=== PATIENT | female | born 1990 | race Caucasian/White ===

== ENCOUNTER → 2020-04-03 13:57 | Outpatient (BNVA) | payer OTHER, SELFPAY | PROVIDERS: PCP Internal Medicine; Visit Provider Advanced Practice Midwife | DX: Z76.89 Persons encountering health services in other specified circumstances (principal) ==

== ENCOUNTER 2020-04-10 11:40 | Outpatient (REF) | payer OTHER, SELFPAY ==
[2020-04-10 13:48] LABS: Thyroid Stimulating Hormone 1.07 uIU/mL (0.32-4.0)
[2020-04-10 14:02] LABS: Vitamin B12 365 pg/mL (200-900)
== END 2020-04-10 11:41 | disposition home or self-care (01) ==
LOC: HO.LAB 11:40
PROVIDERS: PCP Internal Medicine; Visit Provider Psychiatry & Neurology Neurology
DX: G31.84 Mild cognitive impairment of uncertain or unknown etiology (principal)
CPT/HCPCS: 36415; 82607; 84443

== ENCOUNTER → 2020-05-29 10:31 | Outpatient (BNVA) | payer OTHER, SELFPAY | PROVIDERS: PCP Internal Medicine; Visit Provider Surgery | DX: Z01.818 Encounter for other preprocedural examination (principal); E66.01 Morbid (severe) obesity due to excess calories; Z68.42 Body mass index [BMI] 45.0-49.9, adult; R06.02 Shortness of breath | CPT/HCPCS: 99202 ==

== ENCOUNTER → 2020-06-14 08:06 | Outpatient (BNVA) | payer OTHER, SELFPAY | PROVIDERS: PCP Internal Medicine; Visit Provider Surgery | DX: E66.01 Morbid (severe) obesity due to excess calories (principal); Z68.42 Body mass index [BMI] 45.0-49.9, adult | CPT/HCPCS: 99212 ==

== ENCOUNTER 2020-06-26 13:30 | Outpatient (REF) | payer OTHER, SELFPAY ==
[2020-06-27 15:01] LABS: H Pylori Breath Test NOT DETECTED (NOT DETECTED)
== END 2020-06-26 13:31 | disposition home or self-care (01) ==
LOC: CF 13:30
PROVIDERS: PCP Internal Medicine; Visit Provider Physician Assistant
DX: Z01.818 Encounter for other preprocedural examination (principal); A04.8 Other specified bacterial intestinal infections
CPT/HCPCS: 83013; 99211

== ENCOUNTER → 2020-06-28 14:46 | Outpatient (BNVA) | payer OTHER, SELFPAY | PROVIDERS: PCP Internal Medicine; Visit Provider Dietitian, Registered | DX: E66.01 Morbid (severe) obesity due to excess calories (principal); Z68.42 Body mass index [BMI] 45.0-49.9, adult | CPT/HCPCS: 97802 ==

== ENCOUNTER 2020-07-05 10:15 | Outpatient (REF) | payer OTHER, SELFPAY ==
--- NOTE | ~2020-07-05 | XR_ITS ---
EXAMINATION: XR chest 2V CLINICAL INFORMATION: Reason for Exam R06.02 - Shortness of breath COMPARISON: No prior chest x-ray available in our system for comparison at the time of this dictation. TECHNIQUE: XR chest 2V Lungs and Samantha: Both lungs are clear. Pleura: Normal. Costophrenic angles are sharp. No pneumothorax. Heart: The heart is normal in size. Mediastinum: The mediastinum is within normal limits.. Bones: Skeletal structures included are normal for patient's age. XR/XR chest 2V IMPRESSION: Normal chest x-ray.
--- NOTE | 2020-07-05 10:47 | ECG_ITS ---
Test Reason : R06.02 SOB Blood Pressure : / mmHG Vent. Rate : 077 BPM Atrial Rate : 077 BPM P-R Int : 152 ms QRS Dur : 076 ms QT Int : 382 ms P-R-T Axes : 009 018 048 degrees QTc Int : 432 ms Normal sinus rhythm Normal ECG No previous ECGs available Referred By: Laura Gay Electronically Signed By:BEV HARRINGTON
[2020-07-05 10:54] LABS: MANUAL DIFF FLAG NO
[2020-07-05 11:03] LABS: Basophils Percent Auto 0.1 % (0-2); Eosinophils Absolute Auto 0.1 X10*3/uL (0.0-0.4); Hematocrit 42.8 % (37-47); Hemoglobin 14.2 g/dl (12.0-16.0); Imm Gran Abs Auto 0.02 X10*3/uL (0.00-0.03); Imm Gran Pct Auto 0.2 % (0.0-0.4); Lymphocytes Absolute Auto 1.5 X10*3/uL (1.2-4.9); Lymphocytes Percent Auto 17.1 % (20-40); Mean Corpuscular HGB Conc 33.2 g/dl (31.0-35.0); Mean Corpuscular Hemoglobin 29.6 pg (27.0-33.0); Mean Corpuscular Volume 89.4 fL (80-98); Mean Platelet Volume 12.3 fL (9.4-12.3); Monocytes Absolute Auto 0.4 X10*3/uL (0.1-1.2); Monocytes Percent Auto 4.6 % (2-11); Neutrophils Absolute Auto 6.9 X10*3/uL (2.0-8.3); Platelet Count 265 X10*3/uL (160-400); Red Blood Count 4.79 X10*6/uL (4.20-5.50); White Blood Count 8.9 X10*3/uL (4.8-10.8)
[2020-07-05 11:24] LABS: Estimated Average Glucose 85 mg/dL; Hemoglobin A1C 92.7011 umol/L; Hemoglobin A1c % 4.6 %
[2020-07-05 11:29] LABS: Alanine Aminotransferase 44 U/L (0-31); Albumin Level 4.4 g/dL (3.5-5.0); Alkaline Phosphatase 107 U/L (39-117); Anion Gap 15 (12-20); Aspartate Amino Transferase 24 U/L (5-31); Bilirubin Total 0.5 mg/dL (0.0-1.0); Blood Urea Nitrogen 13 mg/dL (9-16); Calcium 9.3 mg/dL (8.4-10.2); Carbon Dioxide 22 mmol/L (22-29); Chloride 109 mmol/L (96-108); Cholesterol 145 mg/dL; Estimated Glomerular Filt Rate > 60; Glucose Fasting 87 mg/dL (60-99); HDL Cholesterol 31 mg/dL; Iron 60 mcg/dL (30-160); LDL Cholesterol Calculated 100 mg/dl; Percent Iron Saturation 24 % (15-50); Potassium 4.6 mmol/L (3.3-5.1); Sodium 141 mmol/L (135-145); Total Iron Binding Capacity 253 mcg/dL (228-428); Total Protein 7.1 g/dL (6.5-8.0); Triglycerides 70 mg/dL; Unsaturated Iron Binding 193 ug/dL
[2020-07-05 11:49] LABS: Thyroid Stimulating Hormone 0.91 uIU/mL (0.32-4.0); Vitamin B12 333 pg/mL (200-900); Vitamin D 25-OH Total 36.4 ng/mL (>30)
[2020-07-06 12:46] LABS: Calcium (PTHI) 9.2 mg/dL (8.6-10.2); PTHI 51 pg/mL (14-64)
[2020-07-09 17:01] LABS: Zinc 69 mcg/dL (60-130)
[2020-07-10 10:32] LABS: Vitamin A 43 mcg/dL (38-98)
[2020-07-11 17:22] LABS: Vitamin B1 10 nmol/L (8-30)
== END 2020-07-05 10:16 | disposition home or self-care (01) ==
LOC: HO.LAB 10:15
PROVIDERS: PCP Internal Medicine; Visit Provider Surgery
DX: Z01.818 Encounter for other preprocedural examination (principal); K91.2 Postsurgical malabsorption, not elsewhere classified; R06.02 Shortness of breath; Z90.3 Acquired absence of stomach [part of]
CPT/HCPCS: 36415; 71046; 80053; 80061; 82306; 82607; 83036; 83540; 83970; 84425; 84443; 84590; 84630; 85025; 86140; 93005

== ENCOUNTER → 2020-07-12 14:18 | Outpatient (BNVA) | payer OTHER, SELFPAY | PROVIDERS: PCP Internal Medicine; Visit Provider Surgery | DX: E66.01 Morbid (severe) obesity due to excess calories (principal); Z68.42 Body mass index [BMI] 45.0-49.9, adult | CPT/HCPCS: 99212 ==

== ENCOUNTER → 2020-08-13 13:14 | Outpatient (BNVA) | payer OTHER, SELFPAY | PROVIDERS: PCP Internal Medicine; Referring Provider Internal Medicine; Visit Provider Surgery | DX: E66.01 Morbid (severe) obesity due to excess calories (principal); Z68.41 Body mass index [BMI] 40.0-44.9, adult | CPT/HCPCS: 99212 ==

== ENCOUNTER → 2020-09-13 15:17 | Outpatient (BNVA) | payer OTHER, SELFPAY | PROVIDERS: PCP Internal Medicine; Referring Provider Internal Medicine; Visit Provider Surgery | DX: E66.01 Morbid (severe) obesity due to excess calories (principal); F41.8 Other specified anxiety disorders; J30.81 Allergic rhinitis due to animal (cat) (dog) hair and dander; J30.1 Allergic rhinitis due to pollen; Z68.41 Body mass index [BMI] 40.0-44.9, adult; Z87.891 Personal history of nicotine dependence; Z91.02 Food additives allergy status; Z91.018 Allergy to other foods; Z79.899 Other long term (current) drug therapy | CPT/HCPCS: 99212 ==

== ENCOUNTER 2021-03-24 09:09 | Outpatient (REF) | payer OTHER, SELFPAY ==
[2021-03-24 09:46] LABS: Binax Internal Control QC Valid; Binax Lot number: 9864; Binax Now Covid-19 Ag Negative (Negative)
== END 2021-03-24 09:10 | disposition home or self-care (01) ==
LOC: HO.LAB 09:09
PROVIDERS: Visit Provider Internal Medicine
DX: Z20.822 Contact with and (suspected) exposure to COVID-19 (principal)
CPT/HCPCS: 36415; C9803

== ENCOUNTER → 2021-06-18 13:24 | Outpatient (BNVA) | payer OTHER, SELFPAY | PROVIDERS: PCP Internal Medicine; Referring Provider Internal Medicine; Visit Provider Physician Assistant | DX: Z13.89 Encounter for screening for other disorder (principal) ==

== ENCOUNTER 2021-08-28 11:56 | Emergency (ER) | payer OTHER, SELFPAY ==
--- NOTE | ~2021-08-28 | CT_ITS ---
EXAMINATION: CT LUMBAR SPINE WITHOUT CONTRAST CLINICAL INFORMATION: Vertebral tenderness. COMPARISON: Thoracolumbar spine radiographs dated 09/13/2015. TECHNIQUE: Multiple axial images of the lumbar spine were obtained without the administration of intravenous contrast. Coronal and sagittal reformatted images were obtained. This CT examination was performed using dose optimization techniques as appropriate, variously including the following: *Automated exposure control *Adjustment of mA and/or kV according to patient size (this includes techniques or standardized protocols for targeted exams where dose is matched to indication/reason for exam; i.e. extremities or head) *Use of iterative reconstruction technique DLP; 943 mGy-cm FINDINGS: Transitional anatomy seen with rudimentary ribs at T12 and sacralization of L5. A rudimentary disc is seen at L5-S1. There is normal lumbar lordosis and spinal alignment. The vertebral bodies are intact. The neural foramina are patent. The facet joints are unremarkable. The spinous processes and transverse processes are intact. The sacroiliac joints are unremarkable. No significant intra-abdominal/pelvic abnormality. The surrounding soft tissues are unremarkable. CT/CT lumbar spine wo con IMPRESSION: Transitional anatomy as detailed above without other significant abnormality.
[2021-08-28 12:10] VITALS: BP 133/81; PULSE 90; RESP 18; TEMP 37; O2SAT 100; BMI 40.3
[2021-08-28] MEDS: predniSONE 20 MG TABLET 60 MG PO (15:36)
[2021-08-28] MEDS: Ketorolac Tromethamine 30 MG/ML VIAL IM (15:37)
--- NOTE | 2021-08-28 15:45 | ED_ITS ---
HPI - Back Pain/Injury General Chief Complaint: Back Pain/Injury Stated Complaint: Lower back pain Time Seen by Provider: 08/28/21 14:41 Source: patient Mode of arrival: ambulatory Limitations: no limitations History of Present Illness HPI Narrative: 31-year-old female with past medical history of fibromyalgia, traumatic brain injury, PTSD, obesity, presents with acute on chronic low back pain for 1 month. Patient has helped to lift heavy buckets at work, and her back pain was worse after that. It hurts to walk, the pain is in her lower back, and she states that it radiates everywhere. Patient has not had any urinary or bowel incontinence, no urinary retention, no saddle paresthesias, no history of IV drug use, no personal history of cancer, no fevers. The patient saw her primary care provider on August 22, was given meloxicam and cyclobenzaprine, pain is still present Related Data Home Medications Medication Instructions Recorded Confirmed fluoxetine 20 mg capsule 20 mg PO DAILY 04/03/20 08/22/21 lamotrigine 25 mg tablet 25 mg PO Q OTHER DAY 06/18/21 08/22/21 bupropion HCl 150 mg 24 hr tablet, 150 mg PO QAM 08/22/21 08/22/21 extended release dexmethylphenidate 40 mg 40 mg PO DAILY PRN 08/22/21 08/22/21 capsule,extended release [id number] (Focalin XR) Previous Rx's Medication Instructions Recorded omeprazole 20 mg capsule,delayed 20 mg PO BID #60 caps 06/12/21 release ondansetron 8 mg disintegrating 8 mg PO Q12H PRN nausea and 06/12/21 tablet vomiting #30 tabs ondansetron HCl 4 mg tablet 4 mg PO DAILY PRN nausea and 06/18/21 vomiting #30 tabs cyclobenzaprine 5 mg tablet 5 mg PO BEDTIME 30 days #30 tabs 08/22/21 meloxicam 15 mg tablet 15 mg PO DAILY 14 days #14 tabs 08/22/21 methocarbamol 750 mg tablet 750 mg PO Q8H 5 days #15 tabs 08/28/21 oxycodone 5 mg capsule 5 mg PO Q6H PRN pain #6 caps 08/28/21 prednisone 20 mg tablet 60 mg PO DAILY 5 days #15 tabs 08/28/21 Allergies Allergy/AdvReac Type Severity Reaction Status Date / Time dog,cats and molds Allergy Unknown itchy eyes Uncoded 08/22/21 10:02 Gluten & Dairy sensitivity Allergy Unknown GI upset Uncoded 08/22/21 10:02 onions Allergy Unknown stomach Uncoded 08/22/21 10:02 upset ragweed,elm,birch,maple,pigwee Allergy Unknown Itchy Eyes Uncoded 08/22/21 10:02 Review of Systems Constitutional: Constitutional: Denies body ache(s), Denies chills, Denies fatigue, Denies fever(s), Denies headache(s), Denies malaise and Denies weakness Eyes: Eyes: Denies diplopia ENT: Denies vertigo, Denies dizziness, Denies otalgia, Denies headache(s), Denies mouth pain, Denies post nasal drip, Denies sinus pain, Denies sinus pressure, Denies sore throat and Denies throat swelling Cardiovascular: Cardiovascular: Denies chest pain, Denies syncope, Denies leg edema, Denies lightheadedness, Denies Loss of Consciousness, Denies palpitations and Denies dyspnea Respiratory: Respiratory: Denies chest congestion, Denies cough and Denies dyspnea Gastrointestinal: Gastrointestinal: Denies abdominal pain, Denies hematochezia, Denies constipation, Denies diarrhea, Denies nausea and Denies vomiting Musculoskeletal: Musculoskeletal: Reports back pain, Reports myalgias, Reports muscle cramps and Reports radiating pain into limb Neurologic: Denies confusion, Denies vertigo, Denies dizziness, Denies syncope, Denies headache(s) and Denies weakness Psychiatric: Psychiatric: Denies anxiety, Denies confusion and Denies depression Endocrine: Endocrine: Denies fatigue and Denies palpitations Allergic/Immunologic: Allergic/Immunologic: Denies throat swelling PMFSH Past Medical History Medical History Continuous epigastric pain Dairy product intolerance Depression Depression with anxiety Extreme obesity Fibromyalgia History of gluten sensitivity History of traumatic brain injury Hx of migraines IBS (irritable bowel syndrome) Iron deficiency Nausea and vomiting Normal endoscopy PMDD (premenstrual dysphoric disorder) PTSD (post-traumatic stress disorder) Surgical History History of tympanoplasty of left ear Hx of colonoscopy Hx of endoscopy Myringotomy tube status S/P wisdom tooth extraction Family History Family History Father Diverticulitis Polymyalgia Mother HTN (hypertension) Hypothyroidism Glaucoma IBS (irritable bowel syndrome) Arthritis FH: total knee replacement Cervical stenosis of spine Maternal Grandmother Diabetes mellitus Glaucoma Maternal Grandfather Unknown family medical history Paternal Grandmother CVD (cardiovascular disease) Myocardial infarction Paternal Grandfather CVD (cardiovascular disease) Brother Scoliosis Substance abuse Bipolar 1 disorder Social History Social History Alcohol intake: never Patient Tobacco Use Status: Former Tobacco user Substance Use Type: Marijuana Advance Directives: No Advance Directives Information Provided: No Physical Exam Vital Signs: Vital Signs: Last Vital Signs Temp 98.6 F 08/28/21 12:10 Pulse 90 08/28/21 12:10 Resp 18 08/28/21 12:10 BP 133/81 08/28/21 12:10 Pulse Ox 100 08/28/21 12:10 O2 Del Method 08/28/21 12:10 BMI result Body Mass Index 40.3 Const: General: No confusion Nutritional Appearance: well nourished Orientation/consciousness: No confusion Limitations: no limitations Eyes: Conjunctivae: conjunctivae normal Pupils: Equal, round and reactive pupils present EOM: EOMs intact bilaterally Neck: Neck: Yes full ROM, Yes no lymphadenopathy and Yes supple Resp: Effort & Inspection: normal respiratory effort and able to speak in complete sentences Auscultation: clear to auscultation bilaterally, no crackles, no rales, no rhonchi and no wheezes Cardio: Rate: regular rate Rhythm: regular rhythm Heart sounds: S1 normal heart sound present and S2 normal heart sound present GI: Inspection: Yes normal to inspection Palpation (GI): Soft to palpation, nontender, no guarding and not rigid Percussion: Yes normal to percussion Auscultation: normal bowel sounds Back/Spine/Pelvis: Cervical Spine: normal cervical lordosis, cervical ROM normal, No Cervical spine tenderness, No step off deformity and No cervical ROM abnormal Thoracic/Lumbar Spine: thoraco-lumbar spasm, No thoracic spinal tenderness and lumbar spinal tenderness Pelvis: buttock tenderness on the right Skin: General skin exam: no rashes or lesions noted Neuro: General: No confusion Cranial nerves: Yes Equal, round and reactive pupils present Extrem: General: Yes normal to inspection, Yes full ROM and Yes capillary refill normal Right lower extremity: full ROM and normal capillary refill Left lower extremity: full ROM and normal capillary refill Psych: Appearance: grossly normal Affect: normal affect Attitude: cooperative Thought process: Normal thought process present Course Course Course Narrative: 31-year-old female with past medical history fibromyalgia, back pain, traumatic brain injury, PTSD, obesity, presents with acute on chronic low back pain that started 8 days ago. Patient helped to lift a heavy bucket at work and back pain started after that. Patient has no red flag symptoms, she saw her primary care provider August 22, who prescribed meloxicam and cyclobenzaprine, patient has been taking, but the pain is not any better. On exam, patient has stable vitals, she has negative leg raise bilaterally, she tender on her lumbar spine, she is tender in her right buttock, when I push, pain radiates down her right leg. Patient has no spinal surgery, never seen spine due to vertebral tenderness, will CT the patient's lumbar spine gave ketorolac and prednisone Reevaluation(s) Reevaluation #1: FINDINGS: Transitional anatomy seen with rudimentary ribs at T12 and sacralization of L5. A rudimentary disc is seen at L5-S1. There is normal lumbar lordosis and spinal alignment. The vertebral bodies are intact. The neural foramina are patent. The facet joints are unremarkable. The spinous processes and transverse processes are intact. The sacroiliac joints are unremarkable. No significant intra-abdominal/pelvic abnormality. The surrounding soft tissues are unremarkable.? CT/CT lumbar spine wo con IMPRESSION: Transitional anatomy as detailed above without other significant abnormality. ? 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 Patient should follow up with spine doctor. On re-exam, pt is still in pain, tearful, says the prednisone and ketorolac did not help. Will change Flexeril to Robaxin, will give oxycodone here in [facility], will refer to spine MDM - Back Pain/Injury Lab Data Labs: Lab Results 08/28/21 Range/Units 15:50 Urine Test NEGATIVE (NEGATIVE) Discharge Plan Discharge Clinical Impression: Lower back pain Patient Disposition: Home, Self-Care Additional Instructions: Please call [facility] at the following number: [phone]. Please tell them you were seen in the ER and the provider wants you referred for evaluation by a spine doctor to see if the abnormalities on your CT are contributing to your back pain. please take the prednisone and methocarbamol I prescribed, and take oxycodone as needed. the methocarbamol as a muscle relaxant, please stop the cyclobenzaprine. please return to emergency room if you have sudden leg weakness, incontinence of bowel or bladder, numbness or tingling spine, fevers, or any other concerning symptoms Prescriptions: New prednisone 20 mg tablet 60 mg PO DAILY 5 Days Qty: 15 0RF methocarbamol 750 mg tablet 750 mg PO Q8H 5 Days Qty: 15 0RF oxycodone 5 mg capsule 5 mg PO Q6H PRN (Reason: pain) Qty: 6 0RF Rx Instructions: Partial Fill upon patient request. No Action dexmethylphenidate [Focalin XR] 40 mg capsule,ER biphasic 50-50 40 mg PO DAILY PRN bupropion HCl 150 mg tablet extended release 24 hr 150 mg PO QAM meloxicam 15 mg tablet 15 mg PO DAILY 14 Days Qty: 14 0RF cyclobenzaprine 5 mg tablet 5 mg PO BEDTIME 30 Days Qty: 30 0RF omeprazole 20 mg capsule,delayed release(DR/EC) 20 mg PO BID Qty: 60 2RF ondansetron 8 mg tablet,disintegrating 8 mg PO Q12H PRN (Reason: nausea and vomiting) Qty: 30 0RF fluoxetine 20 mg capsule 20 mg PO DAILY lamotrigine 25 mg tablet 25 mg PO Q OTHER DAY ondansetron HCl 4 mg tablet 4 mg PO DAILY PRN (Reason: nausea and vomiting) Qty: 30 0RF
[2021-08-28 15:57] LABS: UPreg QC Valid YES; Urine Pregnancy NEGATIVE (NEGATIVE)
[2021-08-28] MEDS: oxyCODONE HCl Immed Release 5 MG TABLET PO (18:58)
[2021-08-28] MEDS: Cyclobenzaprine HCl 10 MG TABLET PO (18:58)
== END 2021-08-28 19:05 | disposition home or self-care (01) ==
PROVIDERS: Physician Assistant; Emergency Provider Emergency Medicine; PCP Internal Medicine
DX: Z04.2 Encounter for examination and observation following work accident (principal); M54.50 Low back pain, unspecified; Z87.820 Personal history of traumatic brain injury
CPT/HCPCS: 72131; 81025; 96372; 99283; 99284; J1885

== ENCOUNTER → 2021-09-05 13:05 | Outpatient (BNVA) | payer OTHER, SELFPAY | PROVIDERS: PCP Internal Medicine; Visit Provider Anesthesiology | DX: M16.0 Bilateral primary osteoarthritis of hip (principal); M46.1 Sacroiliitis, not elsewhere classified; M51.36 Other intervertebral disc degeneration, lumbar region | CPT/HCPCS: 99202 ==

== ENCOUNTER 2022-04-21 11:51 | Outpatient (REF) | payer OTHER, SELFPAY ==
[2022-04-21 13:19] LABS: Influenza A PCR NEGATIVE (Negative); Influenza B PCR NEGATIVE (Negative); Resp Syncy Virus RNA Qual PCR NEGATIVE (Negative); SARS COV2 PCR INHOUSE NEGATIVE (Negative)
== END 2022-04-21 11:52 | disposition home or self-care (01) ==
LOC: HO.LNP 11:51
PROVIDERS: Visit Provider Internal Medicine
DX: Z20.822 Contact with and (suspected) exposure to COVID-19 (principal); R43.9 Unspecified disturbances of smell and taste
CPT/HCPCS: 0241U

== ENCOUNTER 2024-11-08 14:16 | Outpatient (AMB) | payer OTHER, SELFPAY ==
--- OUTSIDE RECORDS SUMMARY | 2024-11-08 15:38 | XMS_ITS | Patient Health Record ---
Author Organization [facility] Address [address] [place] [address] Support Name Relationship Address Phone DEANNA, SUSAN Emergency Contact [address] [place], [place] [id number] PEMA HUERTA Guarantor Unknown [phone] Care Team Providers Care Student Development Specialist Name Role Phone Lisbeth TEMPLE, Dariln Primary Care Provider Murray De Paz Jr [phone] Allergies Allergen (clinical drug ingredient) Drug/Non Drug Allergy documented on EMR Reaction Allergy Type Onset Date Status sumatriptan Sumatriptan Unknown Drug Allergy Act rigoberto Reason For Referral No Information Medications Medication SIG (Take, Route, Frequency, Duration) Notes Start Date End Date Status Omeprazole 20 MG 1 capsule Orally Onc e a day for 30 day(s) Active Focalin XR 40 MG 1 capsule in the morning Orally Once a day Active Ibuprofen 800 MG TK 1 T PO QD WF OR MILK PRN Oral prn Active FLUoxetine HCl 10 MG TK 1 C PO QD IN THE MORNING Oral Once a day Active Dicyclomine HCl 10 MG 1 capsule Orally F our times a day Not-Taking Nortriptyline HCl 25 MG TK 1 C PO QHS Oral QHS Active lamoTRIgine 25 MG 1 tablet Orally Twic e a day Active Cetirizine HCl 10 MG TK 1 T PO D Orally Once a day Active Lyrica 150 MG 1 capsule Orally Thr ee times a day Active Vitamin D3 38938 UNIT TK 1 C PO WEEKLY Orally Once a week Active Fluticasone Propionate 50 MCG/ACT U 2 SPRAYS IN EACH NOSTRIL D Nasal Once a day Active Ketoconazole 2 % 1 application to affected area External Once a day Active Norlyda 0.35 MG TK 1 T PO D Orally once a day Active diphenhydrAMINE HCl 50 MG 1 capsule as n eeded Orally prn 03/26/2018 Active Naproxen 500 MG 1 tablet with food o r milk Orally once a day Active Topiramate 50 MG 1 tablet Orally Once a day Active Metoclopramide HCl 10 MG as directed Ora l as directed Active Immunizations Vaccine Route Administration Date Status Comme nts Influenza Unknown 12/21/2017 Administered Social History Tobacco Use: Social History Observation Description Date Details (start date - stop date) Former Smoker NA - NA Tobacco Use/Smoking Question Answer Notes Patient is a former smoker How long has it been since you last smoked? 1-5 years Problems Problem Type SNOMED Code ICD Code Onset Dates Problem Status W/U Status Risk Notes Problem 929902234 Gastroesophageal reflux disease without esophagitis (K21.9) Active confirmed Problem 25235042 Nausea and vomit ing, unspecified intactability, vomiting of unspecified type (R11.2) Active confirmed Problem 386293257 Anemia, unspecif ied type (D64.9) Active confirmed Problem 35831889 Irritable bowel syndrome with both constipation and diarrhea (K58.2) Active confirmed Plan Of Treatment Pending Test Test Name Order Date IRON + IBC (FE) 04/02/2018 FERRITIN 04/02/2018 CBC w/o DIFF 04/02/2018 Insurance Providers Payer Name Payer Address Payer Phone Subscriber Number Group Number Insured Name Patient Relationship to Insured Coverage Start Date Coverage End Date [facility] [employer] [facility] [address] [address] [place], [place] [id number] PEMA HUERTA Self - patient is the insured Medical (General) History Medical History History ICD Code fibromyalgia headaches Denies VA,DM,CVA,Lung disease,renal dise ase allergies Surgical History Surgery Date(Month/Year) eardrum colapse repair 2003
--- OUTSIDE RECORDS SUMMARY | 2024-11-08 15:38 | XMS_ITS | Clinical Summary ---
Author Organization [facility] Address [address] [place] [id number] Phone Care Team Providers Care Day Worker Name Role Phone Darlin Bob MD Primary Care Provider Allergies Active Allergy Reactions Criticality Noted Date Comments Other 12/16/2017 Seasonal Sumatriptan 03/26/2018 Other reaction(s): Unknown Medications FLUoxetine (PROZAC) 20 MG tablet Take 60 mg by mouth daily. Active lamoTRIgine (LAMICTAL) 25 MG tablet Take 50 mg by mouth daily. Active dexmethylphenida te (FOCALIN XR) 25 mg 24 hr capsule Take 25 mg by mouth every morning. Active diphenhydrAMINE (BENADRYL) 50 MG capsule Take 50 mg by mouth as needed for itching. Active levocetirizine (XYZAL) 5 MG tablet Take 5 mg by mouth daily. 3 Active cloNIDine HCL (CATAPRES) 0.1 MG tablet Take 1 tablet by mouth 2 (two) times a day. 3 Active betamethasone dipropionate 0.05 % ointment Apply topically as needed. 4 Active HIBICLENS 4 % external liquid USE EVERY OTHER DAY BODY WASH TO AFFECTED AREAS ON THE BODY 4 Active nystatin (NYSTOP) powder APPLY TO THE AFFECTED AREAS UNDER THE BREAST AND GROIN AREA ONCE DAILY AFTER SHOWERS 4 Active cyanocobalamin, vitamin B-12, 1000 MCG tabletIndication s:Vitamin B 12 deficiency TAKE 1 TABLET BY MOUTH EVERY DAY 90 tablet 1 5 Active omeprazole (PRILOSEC) 20 MG capsule 1 capsule. Active albuterol 90 mcg/actuation inhaler Inhale 2 puffs into the lungs every 6 (six) hours as needed for wheezing. 6.7 g 5 Active cyclobenzaprine (FLEXERIL) 5 MG tabletIndication s:Fibromyalgia,C hronic left-sided low back pain with left-sided sciatica Take 1-2 tabs for muscle spasm as needed 180 tablet 1 5 Active ibuprofen (ADVIL,MOTRIN) 600 MG tabletIndication s:Chronic left-sided low back pain with left-sided sciatica Take 1 tab twice daily with food as needed for pain 180 tablet 1 5 Active omeprazole (PRILOSEC) 20 MG tablet Take 20 mg by mouth. 10/14/19 25 Discontin ued(Dupli kasi order) fluticasone propionate (FLONASE) 50 mcg/actuation nasal spray 1 spray 2 (two) times a day. 3 10/14/19 25 Discontin ued(No longer taking) cyclobenzaprine (FLEXERIL) 5 MG tabletIndication s:Fibromyalgia,C hronic left-sided low back pain with left-sided sciatica Take 1-2 tabs for muscle spasm as needed 60 tablet 4 10/14/19 25 Discontin ued(Reord er) ibuprofen (ADVIL,MOTRIN) 600 MG tabletIndication s:Chronic left-sided low back pain with left-sided sciatica Take 1 tab twice daily with food as needed for pain 60 tablet 4 10/14/19 25 Discontin ued(Reord er) topiramate (TOPAMAX) 50 MG tablet 1 tablet Orally Once a day 10/14/19 25 Discontin ued(No longer taking) pregabalin (LYRICA) 150 MG capsule 1 capsule. 10/14/19 25 Discontin ued(No longer taking) predniSONE (DELTASONE) 20 MG tablet TAKE 2 TABLETS BY MOUTH EVERY DAY FOR 5 DAYS 10/14/19 25 Discontin ued(No longer taking) Active Problems Problem Noted Date Diagnosed Date Heat intolerance 10/13/2024 Vitamin B12 deficiency 10/13/2024 Vitamin D deficiency, unspecified 09/16/2023 Fatigue 09/16/2023 Assessment & Plan (09/19/2023 4:20 PM EDT): Balance rest and activity. Keep well-hydrated. Eat well-balanced nutritionally diet. Gentle, regular exercise as tolerated. Adhere to age-appropriate screenings and preventive strategies. Avoid falls, injuries, overuse, sunburn and sick contacts Continue regular hobbies and favorite activities. Class 3 severe obesity due t o excess calories with serious comorbidity and body mass index (BMI) of 45.0 to 49.9 in adult 09/16/2023 Assessment & Plan (01/24/2024 10:38 PM EST): Congratulations on losing 1 pound from 297 in late August 2023 down to 296 today and keep it off. Continue diligent portion control. Limit concentrated sugars, saturated fats and calories in the diet. Keep well-hydrated. If unable to achieve expected goal consider formal dietary/nutritional support. Assessment & Plan (09/19/2023 4:20 PM EDT): Continue diligent portion control particularly in view of gaining 60 pounds from 237 in September 2021 up to 297 today! Limit concentrated sugars, saturated fats and calories in the diet. Keep well-hydrated. If unable to achieve expected goal consider formal dietary/nutritional support. Chronic left-sided low back pain with left-sided sciatica 10/07/2021 Assessment & Plan (10/13/2024 3:08 PM EDT): Joint protection, energy conservation. Gentle, regular exercise routine. Avoid falls, injuries, overuse, bending, stooping, Heavy Lifting, sudden turns. Work hard on bringing her body weight into ideal range for her height. She may benefit from topical cream such as Arnica, Biofreeze, Aspercreme versus medicated patches such as salonpas, icy hot patch 2-3 times daily and if necessary at bedtime x 3 weeks. Carefully try methocarbamol 750 mg up to 3 times daily as needed. Assessment & Plan (01/06/2024 1:23 PM EDT): Joint protection, energy conservation. Gentle, regular exercise routine. Avoid falls, injuries, overuse, bending, stooping, Heavy Lifting, sudden turns. Work hard on bringing her body weight into ideal range for her height. She may benefit from topical cream such as Arnica, Biofreeze, Aspercreme versus medicated patches such as salonpas, icy hot patch 2-3 times daily and if necessary at bedtime x 3 weeks. Carefully try methocarbamol 750 mg up to 3 times daily as needed. Assessment & Plan (09/16/2023 8:51 AM EDT): Joint protection, energy conservation. Gentle, regular exercise routine. Avoid falls, injuries, overuse, bending, stooping, Heavy Lifting, sudden turns. Work hard on bringing her body weight into ideal range for her height. She may benefit from topical cream such as Arnica, Biofreeze, Aspercreme versus medicated patches such as salonpas, icy hot patch 2-3 times daily and if necessary at bedtime x 3 weeks. Carefully try methocarbamol 750 mg up to 3 times daily as needed. Assessment & Plan (10/22/2021 10:55 PM EDT): Joint protection, energy conservation. Gentle, regular exercise routine. Avoid falls, injuries, overuse, bending, stooping, Heavy Lifting, sudden turns. Work hard on bringing her body weight into ideal range for her height. She may benefit from topical cream such as Arnica, Biofreeze, Aspercreme versus medicated patches such as salonpas, icy hot patch 2-3 times daily and if necessary at bedtime x 3 weeks. Carefully try methocarbamol 750 mg up to 3 times daily as needed. Vitamin D insufficiency 10/07/2021 Assessment & Plan (01/06/2024 1:43 PM EDT): Serum level requested to make sure that she does not require additional supplementation to keep within the optimal range: 40-45 ng/ml. Assessment & Plan (10/22/2021 10:52 PM EDT): Serum level requested to make sure that she does not require additional supplementation to keep within the optimal range: 40-45 ng/ml. Gastroesophageal reflux disease without esophagi tis 04/13/2020 Assessment & Plan (10/13/2024 3:08 PM EDT): Avoid late, large, spicy meals. Keep headboard elevated at 45 angle for nighttime. Assessment & Plan (01/06/2024 1:25 PM EDT): Avoid late, large, spicy meals. Keep headboard elevated at 45 angle for nighttime. Assessment & Plan (09/19/2023 4:17 PM EDT): Avoid late, large, spicy meals. Keep headboard elevated at 45 angle for nighttime. Carefully continue omeprazole 20 mg daily Assessment & Plan (10/22/2021 10:53 PM EDT): Avoid late, large, spicy meals. Keep headboard elevated at 45 angle for nighttime. Assessment & Plan (11/02/2020 8:59 AM EDT): Avoid late, large, spicy meals. Keep headboard elevated at 45 angle for nighttime. Continue omeprazole 20 mg daily before breakfast. Assessment & Plan (07/29/2020 10:54 PM EDT): Avoid late, large, spicy meals. Keep headboard elevated at 45 angle for nighttime. Assessment & Plan (04/13/2020 3:42 PM EST): Avoid late, large, spicy meals. Keep headboard elevated at 45 angle for nighttime. On SSRI therapy 04/13/2020 Assessment & Plan (10/13/2024 3:08 PM EDT): Monitor for mood swings, increased muscle rigidity and temperature intolerance. Assessment & Plan (01/06/2024 1:23 PM EDT): Monitor for mood swings, increased muscle rigidity and temperature intolerance. Assessment & Plan (09/16/2023 9:16 AM EDT): Monitor for mood swings, increased muscle rigidity and temperature intolerance. Assessment & Plan (11/02/2020 8:58 AM EDT): Monitor for mood swings, increased muscle rigidity and temperature intolerance. Assessment & Plan (07/29/2020 10:54 PM EDT): Monitor for mood swings, increased muscle rigidity and temperature intolerance. Assessment & Plan (04/13/2020 3:45 PM EST): Monitor for mood swings, increased muscle rigidity and temperature intolerance. Advice given about COVID-19 virus by telephone 1 04/30/2019 Assessment & Plan (02/28/2020 9:59 AM EST): I reviewed with her benefits of yearly influenza vaccine particularly this year in view of possible concomitant risk of madelaine COVID-19 virus. She is educated to get yearly influenza vaccine SHONDA since it takes 2 weeks for the body to produce enough of protection the upcoming season. Chronic coccygeal pain 02/24/2019 Chronic midline low back pain 08/23/2018 Assessment & Plan (04/13/2020 3:45 PM EST): Avoid bending, stooping, heavy lifting and sudden turns. Use warm packs, warm shower prior to gentle, regular core muscle stretching and strengthening exercises. Consider regular warm pool therapy. Work on reducing body weight as close as possible to ideal range for her height. Assessment & Plan (02/24/2020 2:14 PM EST): Avoid bending, stooping, heavy lifting and sudden turns. Use warm packs, warm shower prior to gentle, regular core muscle stretching and strengthening exercises. Consider regular warm pool therapy. Work on reducing body weight as close as possible to ideal range for her height. Assessment & Plan (07/27/2019 11:54 AM EDT): Avoid bending, stooping, heavy lifting and sudden turns. Use warm packs, warm shower prior to gentle, regular core muscle stretching and strengthening exercises. Consider regular warm pool therapy. Work on reducing body weight as close as possible to ideal range for her height. Assessment & Plan (03/19/2019 9:40 AM EST): Avoid bending, stooping, heavy lifting and sudden turns. Use warm packs, warm shower prior to gentle, regular core muscle stretching and strengthening exercises. Consider regular warm pool therapy. Work on reducing body weight as close as possible to ideal range for her height. Other insomnia 05/24/2018 Assessment & Plan (02/28/2020 9:56 AM EST): Sleep hygiene. Listen to relaxation tapes prior to bed rest. Consider melatonin 3-5 mg nightly x 6-12 weeks. If not better seek sleep specialist consultation-sleep study requested. Assessment & Plan (07/27/2019 11:53 AM EDT): Sleep hygiene. Listen to relaxation tapes prior to bed rest. Consider melatonin 3-5 mg nightly x 6-12 weeks. If not better seek sleep specialist consultation-sleep study requested. Assessment & Plan (02/24/2019 11:11 AM EST): Sleep hygiene. Listen to relaxation tapes prior to bed rest. Consider melatonin 3-5 mg nightly x 6-12 weeks. If not better seek sleep specialist consultation-sleep study requested. Assessment & Plan (05/25/2018 11:49 PM EST): Lip hygiene. Listen to relaxation tapes prior to bed rest. Consider melatonin 3-5 mg nightly x 6-12 weeks. If not better seek sleep specialist consultation-sleep study requested. Vaso-vagal reaction 05/24/2018 Assessment & Plan (05/25/2018 11:43 PM EST): After injecting a mixture of lidocaine and Depo-Medrol into her right carpal tunnel she became pale, nauseous and diaphoretic. I applied ice pack to her forehead and posterior neck and asked her to lower her head onto a pillow on the table monitoring her pulse rate and respirations that were stable. She did not lose consciousness-was communicating with me throughout the entire event that lasted about 8-10 minutes. She was able to get up from the chair without dizziness and walked with me to waiting room steadily. Fibromyalgia 12/16/2017 Assessment & Plan (10/13/2024 3:08 PM EDT): She was able to taper off of Lyrica about 12 months ago and does not feel worse without it in fact she feels a bit better intermittently. Listen regularly to [facility] guide to pain relief audiobook. Sleep hygiene. Proper hydration. Well-balanced nutritionally diet. Gentle, regular exercise as tolerated. Balance rest and activity. Keep regular engagement in hobbies/favorite activities. Continue listening to audiobook written by Dr Phil [facility] addressing management strategies for patients with fibromyalgia utilizing mindfulness approach. I have explained to Jessica that to justify her disability claim she needs to get a full functional capacity evaluation that is testing her ability to perform job-related duties over 8-hour work day. I suggested her to request evaluation by return to work as part of possible job re-training. Assessment & Plan (01/06/2024 1:23 PM EDT): She was able to taper off of Lyrica about 12 months ago and does not feel worse without it in fact she feels a bit better intermittently. Listen regularly to [facility] guide to pain relief audiobook. Sleep hygiene. Proper hydration. Well-balanced nutritionally diet. Gentle, regular exercise as tolerated. Balance rest and activity. Keep regular engagement in hobbies/favorite activities. Continue listening to audiobook written by Dr Phil [facility] addressing management strategies for patients with fibromyalgia utilizing mindfulness approach. I have explained to Jessica that to justify her disability claim she needs to get a full functional capacity evaluation that is testing her ability to perform job-related duties over 8-hour work day. I suggested her to request evaluation by return to work as part of possible job re-training. Assessment & Plan (09/19/2023 4:14 PM EDT): She was able to taper off of Lyrica about 12 months ago and does not feel worse without it in fact she feels a bit better intermittently. Listen regularly to [facility] guide to pain relief audiobook. Sleep hygiene. Proper hydration. Well-balanced nutritionally diet. Gentle, regular exercise as tolerated. Balance rest and activity. Keep regular engagement in hobbies/favorite activities. Continue listening to audiobook written by Dr Phil persaud addressing management strategies for patients with fibromyalgia utilizing mindfulness approach. I have explained to Jessica that to justify her disability claim she needs to get a full functional capacity evaluation that is testing her ability to perform job-related duties over 8-hour work day. I suggested her to request evaluation by return to work as part of possible job re-training. Assessment & Plan (11/02/2020 9:00 AM EDT): He was able to taper off of Lyrica about 2 months ago and does not feel worse without it in fact she feels a bit better. Listen regularly to [facility] guide to pain relief audiobook. Sleep hygiene. Proper hydration. Well-balanced nutritionally diet. Gentle, regular exercise as tolerated. Balance rest and activity. Keep regular engagement in hobbies/favorite activities. Continue listening to audiobook written by Dr Phil persaud addressing management strategies for patients with fibromyalgia utilizing mindfulness approach. I have explained to Jessica that to justify her disability claim she needs to get a full functional capacity evaluation that is testing her ability to perform job-related duties over 8-hour work day. I suggested her to request evaluation by return to work as part of possible job re-training. Assessment & Plan (07/29/2020 10:53 PM EDT): Gently taper Lyrica by taking 150 mg twice daily alternating with Lyrica 150 mg daily x 2 weeks, if no worsening take Lyrica 150 mg daily x 2 weeks, if no worsening take Lyrica 150 mg every other day x 1 week and then stop. Call if problems or questions. Listen regularly to [facility] guide to pain relief audiobook. Sleep hygiene. Proper hydration. Well-balanced nutritionally diet. Gentle, regular exercise as tolerated. Balance rest and activity. Keep regular engagement in hobbies/favorite activities. Continue listening to audiobook written by Dr Phil persaud addressing management strategies for patients with fibromyalgia utilizing mindfulness approach. I have explained to Jessica that to justify her disability claim she needs to get a full functional capacity evaluation that is testing her ability to perform job-related duties over 8-hour work day. I suggested her to request evaluation by return to work as part of possible job re-training. Assessment & Plan (04/13/2020 3:40 PM EST): Continue Lyrica 150 mg 3 times daily as prescribed. Listen regularly to [facility] guide to pain relief audiobook. Sleep hygiene. Proper hydration. Well-balanced nutritionally diet. Gentle, regular exercise as tolerated. Balance rest and activity. Keep regular engagement in hobbies/favorite activities. Continue listening to audiobook written by Dr Phil persaud addressing management strategies for patients with fibromyalgia utilizing mindfulness approach. I have explained to Jessica that to justify her disability claim she needs to get a full functional capacity evaluation that is testing her ability to perform job-related duties over 8-hour work day. I suggested her to request evaluation by return to work as part of possible job re-training. Assessment & Plan (02/28/2020 9:58 AM EST): Continue Lyrica 150 mg 3 times daily as prescribed. Listen regularly to [facility] guide to pain relief audiobook. Sleep hygiene. Proper hydration. Well-balanced nutritionally diet. Gentle, regular exercise as tolerated. Balance rest and activity. Keep regular engagement in hobbies/favorite activities. Continue listening to audiobook written by Dr Phil persaud addressing management strategies for patients with fibromyalgia utilizing mindfulness approach. I have explained to Jessica that to justify her disability claim she needs to get a full functional capacity evaluation that is testing her ability to perform job-related duties over 8-hour work day. I suggested her to request evaluation by return to work as part of possible job re-training. Assessment & Plan (07/27/2019 7:05 PM EDT): Listen regularly to [facility] guide to pain relief audiobook. Sleep hygiene. Proper hydration. Well-balanced nutritionally diet. Gentle, regular exercise as tolerated. Balance rest and activity. Keep regular engagement in hobbies/favorite activities. Continue listening to audiobook written by Dr Phil persaud addressing management strategies for patients with fibromyalgia utilizing mindfulness approach Assessment & Plan (02/24/2019 11:00 AM EST): Listening regularly to [facility] guide to pain relief audiobook. Sleep hygiene. Proper hydration. Well-balanced nutritionally diet. Gentle, regular exercise as tolerated. Balance rest and activity. Keep regular engagement in hobbies/favorite activities. Continue listening to audiobook written by Dr Phil persaud addressing management strategies for patients with fibromyalgia utilizing mindfulness approach Assessment & Plan (05/25/2018 11:46 PM EST): Listening regularly to [facility] guide to pain relief audiobook. Sleep hygiene. Proper hydration. Well-balanced nutritionally diet. Gentle, regular exercise as tolerated. Balance rest and activity. Keep regular engagement in hobbies/favorite activities. Continue listening to audiobook written by Dr Phil persaud addressing management strategies for patients with fibromyalgia utilizing mindfulness approach Chronic pain of left knee 12/16/2017 Migraine without aura 12/16/2017 Assessment & Plan (11/02/2020 8:58 AM EDT): Keep a diary of headaches and if frequent and severe consider preventative medication along with symptomatic strategy on the first sign of upcoming headache. Close follow-up with treating neurologist as scheduled. Keep well-hydrated. Avoid triggers. Optimize stress managing strategies. Assessment & Plan (07/29/2020 10:53 PM EDT): Keep a diary of headaches and if frequent and severe consider preventative medication along with symptomatic strategy on the first sign of upcoming headache. Close follow-up with treating neurologist as scheduled. Keep well-hydrated. Avoid triggers. Optimize stress managing strategies. Assessment & Plan (04/13/2020 3:40 PM EST): Keep a diary of headaches and if frequent and severe consider preventative medication along with symptomatic strategy on the first sign of upcoming headache. Close follow-up with treating neurologist as scheduled. Keep well-hydrated. Avoid triggers. Optimize stress managing strategies. Assessment & Plan (02/28/2020 9:54 AM EST): Keep a diary of headaches and if frequent and severe consider preventative medication along with symptomatic strategy on the first sign of upcoming headache. Close follow-up with treating neurologist as scheduled. Keep well-hydrated. Avoid triggers. Optimize stress managing strategies. Assessment & Plan (07/27/2019 7:05 PM EDT): Keep a diary of headaches and if frequent and severe consider preventative medication along with symptomatic strategy on the first sign of upcoming headache. Close follow-up with treating neurologist as scheduled. Keep well-hydrated. Avoid triggers. Optimize stress managing strategies. Assessment & Plan (02/24/2019 11:00 AM EST): Keep a diary of headaches and if frequent and severe consider preventative medication along with symptomatic strategy on the first sign of upcoming headache. Close follow-up with treating neurologist as scheduled. Keep well-hydrated. Avoid triggers. Optimize stress managing strategies. Assessment & Plan (05/25/2018 11:47 PM EST): Keep a diary of headaches and if frequent and severe consider preventative medication along with symptomatic strategy on the first sign of upcoming headache. Close follow-up with treating neurologist as scheduled. Keep well-hydrated. Avoid triggers. Optimize stress managing strategies. Carpal tunnel syndrome of right wrist 12/16/2017 Assessment & Plan (01/06/2024 1:24 PM EDT): Clinically suggestive for carpal tunnel syndrome but not confirmed by EMG/NCS- further neurological input requested. Continue joint protection, energy conservation techniques. Topical cream versus patch as needed. Assessment & Plan (11/02/2020 9:03 AM EDT): Clinically suggestive for carpal tunnel syndrome but not confirmed by EMG/NCS- further neurological input requested. Continue joint protection, energy conservation techniques. Topical cream versus patch as needed. Assessment & Plan (07/29/2020 10:53 PM EDT): Clinically suggestive for carpal tunnel syndrome but not confirmed by EMG/NCS- further neurological input requested. Continue joint protection, energy conservation techniques. Topical cream versus patch as needed. Assessment & Plan (04/13/2020 3:41 PM EST): Clinically suggestive for carpal tunnel syndrome but not confirmed by EMG/NCS- further neurological input requested. Continue joint protection, energy conservation techniques. Topical cream versus patch as needed. Assessment & Plan (02/28/2020 9:55 AM EST): Clinically suggestive for carpal tunnel syndrome but not confirmed by EMG/NCS- further neurological input requested. Continue joint protection, energy conservation techniques. Topical cream versus patch as needed. Assessment & Plan (07/27/2019 7:06 PM EDT): Continue splinting, joint protection, energy conservation techniques. Because of severe pain and numbness that did not respond satisfactorily to cortisone injection she is willing to see orthopedic hand surgeon to consider surgical release. Assessment & Plan (02/24/2019 10:59 AM EST): Continue splinting, joint protection, energy conservation techniques. Because of severe pain and numbness she agreed to undergo cortisone and lidocaine today. Assessment & Plan (05/25/2018 11:47 PM EST): Continue splinting, joint protection, energy conservation techniques. Because of severe pain and numbness she agreed to undergo cortisone and lidocaine today. Resolved Problems Problem Noted Date Diagnosed Date Resolved Date Class 2 severe obesity due t o excess calories with serious comorbidity and body mass index (BMI) of 38.0 to 38.9 in adult 10/07/2021 4 Assessment & Plan (10/07/2021 4:03 PM EDT): Portion control. Limit concentrated sugars, saturated fats and calories in the diet. Keep well-hydrated. If unable to achieve expected goal consider formal dietary/nutritional support. Vitamin D insufficiency 12/16/201710/21 Assessment & Plan (07/29/2020 10:48 PM EDT): She is interested in learning her response to supplementation and willing to hold vitamin D weekly dose for a week before checking serum level. Continue proper supplementation to keep serum level in optimal range: 40-45 ng/ml. Assessment & Plan (04/17/2020 11:06 AM EST): She is interested in learning her response to supplementation and willing to hold vitamin D weekly dose for a week before checking serum level. Continue proper supplementation to keep serum level in optimal range: 40-45 ng/ml. Assessment & Plan (02/28/2020 9:50 AM EST): Continue proper supplementation to keep serum level in optimal range: 40-45 ng/ml. Assessment & Plan (07/27/2019 7:04 PM EDT): Continue proper supplementation. Check serum level to make sure that she does not need to adjust daily requirements. Assessment & Plan (02/24/2019 11:00 AM EST): Continue proper supplementation. Assessment & Plan (05/25/2018 11:44 PM EST): Continue proper supplementation. Class 3 severe obesity due t o excess calories without serious comorbidity in adult 12/16/2017 Assessment & Plan (11/02/2020 9:02 AM EDT): Congratulations on 20 pounds weight loss since July 20, 2020 (from 270 pounds down to 250 pounds). Keep it off and continue efforts. Portion control. Limit concentrated sugars, saturated fats and calories in the diet. Keep well-hydrated. If unable to achieve expected goal consider formal dietary/nutritional support. Assessment & Plan (07/29/2020 10:55 PM EDT): Congratulations on 30 pounds weight loss since March 2020 (from 300 down to 270 pounds). Keep it off and continue efforts. Portion control. Limit concentrated sugars, saturated fats and calories in the diet. Keep well-hydrated. Continue formal dietary/nutritional support. Assessment & Plan (04/17/2020 11:07 AM EST): Portion control. Limit concentrated sugars, saturated fats and calories in the diet. Keep well-hydrated. We set up a weight loss goal for 8 pounds in 4 months. If unable to achieve expected goal consider formal dietary/nutritional support. Assessment & Plan (02/28/2020 9:51 AM EST): Portion control. Limit concentrated sugars, saturated fats and calories in the diet. Keep well-hydrated. If unable to achieve expected goal consider formal dietary/nutritional support. Assessment & Plan (07/27/2019 7:04 PM EDT): Portion control. Limit concentrated sugars, saturated fats and calories in the diet. Keep well-hydrated. If unable to achieve expected goal consider formal dietary/nutritional support. Assessment & Plan (02/24/2019 10:59 AM EST): Portion control. Limit concentrated sugars, saturated fats and calories in the diet. Keep well-hydrated. If unable to achieve expected goal consider formal dietary/nutritional support. Assessment & Plan (05/25/2018 11:44 PM EST): Portion control. Limit concentrated sugars, saturated fats and calories in the diet. Keep well-hydrated. If unable to achieve expected goal consider formal dietary/nutritional support. Encounters Date Type Department Care Team Description 10/13/2024 3:30 PM EDT - 10/13/2024 11:59 PM EDT Hospital Encounter [facility] [address] [place] [address] Rika Charles MD Discharge Disposition: Home or Self Care 10/13/2024 2:30 PM EDT Office Visit [facility] Rheumatology [address] [place] [address] Rika Charles MD Fibromyalgia (Primary Dx); Chronic left-sided low back pain with left-sided sciatica; On SSRI therapy; Gastroesophageal reflux disease without esophagitis; Heat intolerance; Vitamin B12 deficiency; Fatigue, unspecified type; Class 3 severe obesity due to excess calories with serious comorbidity and body mass index (BMI) of 45.0 to 49.9 in adult from Last 3 Months Family History Medical History Relation Comments Scoliosis Brother Inflammatory bowel disease Father Hypertension Mother Thyroid disease Mother Relation Status Comments Brother Alive Father Alive Mother Alive Social History Tobacco Use Types Packs/Day Years Used Date Smoking Tobacco: Former Smokeless Tobacco: Never Tobacco Cessation:Counseling Given: Not Answered Alcohol Use Standard Drinks/Week Comments Not Currently 0 (1 standard drink = 0.6 oz pur e alcohol) Education Answer Date Recorded Are you interested in more education? Not on rebekah e 07/18/2022 Are you concerned about learning? Not on file 07/18/2022 No 07/18/2022 No 07/18/2022 Digital Access Answer Date Recorded No 08/16/2022 No 08/16/2022 Reliable internet access at home? Not on file 08/16/2022 Device with a working camera? Not on file Comments Unknown Sex and Gender Information Value Date Recorded Sex Assigned at Female 12/11/2023 4:03 PM EDT Legal Sex Female 1:53 PM EDT Gender Identity Female 12/11/2023 4:03 PM EDT Sexual Orientation Pansexual 12/11/2023 4: 05 PM EDT Last Filed Vital Signs Vital Sign Reading Time Taken Comments Blood Pressure 110/68 10/13/2024 2:22 PM EDT Pulse 83 10/13/2024 2:22 PM EDT Temperature 36.5 C (97.7 F) 05/17/2024 4:37 PM EST Respiratory Rate 20 05/17/2024 4:37 PM EST Oxygen Saturation 98% 10/13/2024 2:22 PM EDT Inhaled Oxygen Concentration - - Weight 128.8 kg (284 lb) 10/13/2024 2:22 PM EDT with shoes Height 167.6 cm (5' 5.98 ) 10/13/2024 2:22 PM ED T Body Mass Index 45.86 10/13/2024 2:22 PM EDT Plan of Treatment Upcoming Encounters Date Type Department Care Team (Late st Contact Info) Description 04/17/2025 2:00 PM EST Office Visit [facility] Rheumatology [address] [place] [address] Rika Charles MD [address], [address] [place] [address] Health Maintenance Due Date Last Done Comments DEPRESSION SCREENING 2003 SMOKING Hx and SMOKELESS TOBACCO SCREENING 2004 HEPATITIS C SCREENING 2009 HIV ONE-TIME SCREENING (18-6 5 YEARS) 2009 PAP SMEAR 2012 COVID-19 VACCINE (3 - 2023-2 5 season) 2023 10/31/2020, 10/07/2020 Adult Td,Tdap Booster 09/03/2027 09/02/2017 , 06/07/2008 HEPATITIS A VACCINES Aged Out No long er eligible based on patient's age to complete this topic HIB VACCINES Aged Out No longer eligi ble based on patient's age to complete this topic MENINGOCOCCAL VACCINES (ACWY) Aged Out No longer eligible based on patient's age to complete this topic MENINGOCOCCAL VACCINES (B) Aged Out N o longer eligible based on patient's age to complete this topic PNEUMOCOCCAL VACCINES (0-49 years) Aged Out No longer eligible b ased on patient's age to complete this topic Medical Devices Not on file Procedures Procedure Name Priority Date/Time Associated Diagnosis Comments VITAMIN B12 Routine 10/13/2024 3:35 PM EDT Vitamin B12 deficiency Fatigue, unspecified type CPK (CREATINE KINASE) Routine 10/13/2024 3:35 PM EDT Fatigue, unspecified type TSH WITH REFLEX Routine 10/13/2024 3:35 PM EDT Heat intolerance Fatigue, unspecified type COMPREHENSIVE METABOLIC PANEL Routine 10/13/2024 3:35 PM EDT Chronic coccygeal pain NSAID long-term use C-REACTIVE PROTEIN Routine 10/13/2024 3: 35 PM EDT Chronic coccygeal pain NSAID long-term use SEDIMENTATION RATE (ESR) Routine 10/13/2024 3:35 PM EDT Chronic coccygeal pain NSAID long-term use CBC AND DIFFERENTIAL Routine 10/13/2024 3:35 PM EDT Chronic coccygeal pain NSAID long-term use from Last 3 Months Results * Comprehensive metabolic panel (10/13/2024 3:35 PM EDT) SODIUM 140 133 - 146 mmol/L [facility] POTASSIUM 4.6 3.3 - 5.1 mmol/L [facility] CHLORIDE 103 96 - 108 mmol/L [facility] CO2 25 21 - 35 mmol/L [facility] BUN 8 6 - 19 mg/dL [facility] CREATININE 0.70 0.5 - 1.5 mg/dL [facility] GLUCOSE 99 70 - 99 mg/dL [facility] ALBUMIN 4.4 3.9 - 4.8 g/dL [facility] TOTAL PROTEIN 7.3 6.5 - 8.0 g/dL [facility] CALCIUM 9.6 8.4 - 10.3 mg/dL [facility] ALKALINE PHOSPHATASE 82 39 - 117 U/L [facility] TOTAL BILIRUBIN 0.3 0.0 - 1.2 mg/dL [facility] AST 25 0 - 37 U/L [facility] ALT 26 0 - 40 U/L [facility] GLOBULIN 2.9 1 - 4.8 g/dL [facility] EGFR 117 >59 mL/min/1.7 3m2 [facility] Comment:Estimated glomerular filtration rate calculated using the CKD-EPI refit equation. ANION GAP 17 10 - 20 mmol/L [facility] Blood 10/13/2024 3:35 PM EDT 10/13/2024 3:46 PM EDT us Rika Charles MD LAB BLOOD ORDERABLES Fin al Result [address] [address] * TSH with reflex (10/13/2024 3:35 PM EDT) TSH 1.08 0.27 - 4.20 uIU/mL [facility] Blood 10/13/2024 3:35 PM EDT 10/13/2024 3:46 PM EDT us Rika Charles MD LAB BLOOD ORDERABLES Fin al Result [address] [address] * Sedimentation rate (ESR) (10/13/2024 3:35 PM EDT) ESR 7 0 - 20 mm/h [facility] Blood 10/13/2024 3:35 PM EDT 10/13/2024 3:46 PM EDT us Rika Charles MD LAB BLOOD ORDERABLES Fin al Result Performing Organization Address [facility] Co de Phone Number [address] [address] * CBC and differential (10/13/2024 3:35 PM EDT) WBC 9.30 4.00 - 11.00 K/uL [facility] RBC 4.55 4.00 - 5.20 M/uL [facility] HGB 13.3 12.0 - 16.0 g/dL [facility] HCT 40.3 36.0 - 46.0 % [facility] PLT 298 150 - 450 K/uL [facility] MCV 88.6 80.0 - 100.0 fL [facility] MCH 29.2 27.0 - 31.0 pg [facility] MCHC 33.0 32.0 - 36.0 g/dL [facility] RDW 13.8 11.5 - 14.5 % [facility] MPV 11.1 8.4 - 12.0 fL [facility] NRBC 0.00 0.00 /100 WBCs [facility] ABSOLUTE NRBC 0.00 0.00 K/uL [facility] DIFF METHOD Auto [facility] NEUTS 70.4 48.0 - 76.0 % [facility] LYMPHS 21.3 18.0 - 41.0 % [facility] MONOS 6.8 4.0 - 11.0 % [facility] EOS 0.8 0.0 - 5.0 % [facility] BASOS 0.2 0.0 - 1.5 % [facility] Granulocytes, immature (%) 0.5 0.0 - 0.9 % [facility] ABSOLUTE NEUTS 6.55 1.92 - 7.60 K/uL [facility] ABSOLUTE LYMPHS 1.98 0.72 - 4.10 K/uL [facility] ABSOLUTE MONOS 0.63 0.16 - 1.10 K/uL [facility] ABSOLUTE EOS 0.07 0.00 - 0.50 K/uL [facility] ABSOLUTE BASOS 0.02 0.00 - 0.15 K/uL [facility] Granulocytes, immature 0.05 0.00 - 0.09 K/uL [facility] Blood 10/13/2024 3:35 PM EDT 10/13/2024 3:46 PM EDT us Rika Charles MD LAB BLOOD ORDERABLES Fin al Result [address] [address] * (ABNORMAL) C-Reactive Protein (10/13/2024 3:35 PM EDT) C REACTIVE PROTEIN 9.7(H) 0.0 - 4.0 mg/L [facility] Blood 10/13/2024 3:35 PM EDT 10/13/2024 3:46 PM EDT Rika Charles MD LAB BLOOD ORDERABLES Fin al Result [address] [address] * Vitamin B12 (10/13/2024 3:35 PM EDT) VITAMIN B12 464 232 - 1,245 pg/mL [facility] Blood 10/13/2024 3:35 PM EDT 10/13/2024 3:46 PM EDT us Rika Charles MD LAB BLOOD ORDERABLES Fin al Result Performing Organization Address City/[facility] Co de Phone Number [address] [address] * (ABNORMAL) CPK (creatine kinase) (10/13/2024 3:35 PM EDT) CREATINE KINASE 264(H) 21 - 215 U/L [facility] Blood 10/13/2024 3:35 PM EDT 10/13/2024 3:46 PM EDT us Rika Charles MD LAB BLOOD ORDERABLES Fin al Result Performing Organization Address [facility] de Phone Number [address] [address] from Last 3 Months Insurance [facility] [employer] * Guarantor: Jessica Montoya Account Type Relation to Patient Date of Phone Billing Address Personal/Family Self [id number] [place] [address] [facility] [employer] * Guarantor: Jessica Montoya Account Type Relation to Patient Date of Phone Billing Address Personal/Family Self [address] [facility] [address] [id number] [place] [address] [facility] [employer] [facility] [employer] * Guarantor: Jessica Montoya Account Type Relation to Patient Date of Phone Billing Address Personal/Family Self [address] [facility] [id number] [place] [address] [facility] [employer] * Guarantor: Jessica Montoya Account Type Relation to Patient Date of Phone Billing Address Personal/Family Self [address] [id number] [place] [address] [facility] * Guarantor: Jessica Montoya Account Type Relation to Patient Date of Phone Billing Address Personal/Family Self [address] [id number] [place] [address] * Guarantor: JanJessica Account Type Relation to Patient Date of Phone Billing Address Personal/Family Self [address] [facility] [id number] [place] [address] * Guarantor: Jessica Montoya Account Type Relation to Patient Date of Phone Billing Address Personal/Family Self [address] [facility] [id number] [place] [address] Care Teams Day Worker Relationship Specialty Start Date End Date Darlin Bob MD [facility] [place] [address] PCP - General Internal Medicine 09/08/17 Additional Source Comments The information contained in this document represents components of the legal health record. It is not the complete legal health record.[facility]
== END 2024-11-08 14:23 | disposition home or self-care (01) ==
LOC: HO.HMGAL 14:16
PROVIDERS: PCP Internal Medicine; Visit Provider Registered Nurse Emergency
DX: J30.89 Other allergic rhinitis (principal)
CPT/HCPCS: 95117; 95165

== ENCOUNTER 2024-11-30 08:46 | Outpatient (AMB) | payer OTHER, SELFPAY ==
--- OUTSIDE RECORDS SUMMARY | 2024-11-30 10:12 | XMS_ITS | Patient Health Record ---
Author Organization [facility] Address [address] [place] [address] Support Name Relationship Address Phone DEANNA, SUSAN Emergency Contact [address] [place], [place] [id number] PEMA HUERTA Guarantor Unknown [phone] Care Team Providers Care Maintenance Inspector Name Role Phone Lisbeth TEMPLE, Darlin Primary Care Provider Murray De Paz Jr Allergies Allergen (clinical drug ingredient) Drug/Non Drug [...] ee times a day Active Vitamin D3 87790 UNIT TK 1 C PO WEEKLY Orally [...] Problem Status W/U Status Risk Notes Problem 058008393 Gastroesophageal reflux disease without esophagitis (K21.9) Active confirmed Problem 38508889 Nausea and vomit ing, unspecified intactability, vomiting of unspecified type (R11.2) Active confirmed Problem 224186006 Anemia, unspecif ied type (D64.9) Active confirmed Problem 66253681 Irritable bowel syndrome with both constipation and diarrhea (K58.2) Active confirmed Plan Of Treatment Pending Test Test Name Order Date IRON + IBC (FE) 04/02/2018 FERRITIN 04/02/2018 CBC w/o DIFF 04/02/2018 Insurance Providers Payer Name Payer Address Payer Phone Subscriber Number Group Number Insured Name Patient Relationship to Insured Coverage Start Date Coverage End Date [facility] [employer] [facility] [address] [address] [place], [place] [id number] PEMA HUERTA Self - patient is the insured Medical (General) History Medical History History ICD Code fibromyalgia headaches Denies AR,DM,CVA,Lung disease,renal dise ase allergies Surgical History Surgery Date(Month/Year) eardrum colapse repair 2003
--- OUTSIDE RECORDS SUMMARY | 2024-11-30 10:12 | XMS_ITS | Clinical Summary ---
Author Organization [facility] Address [address] [place] [phone] Phone Care Team Providers Care Produce Assistant Name Role Phone Darlin Bob MD Primary [...] tablet Take 5 mg by mouth daily. 07/07/19 23 Active cloNIDine HCL (CATAPRES) 0.1 MG tablet Take 1 tablet by mouth 2 (two) times a day. 05/23/19 23 Active betamethasone dipropionate 0.05 % ointment Apply topically as needed. 12/14/19 24 Active HIBICLENS 4 % external liquid USE EVERY OTHER DAY BODY WASH TO AFFECTED AREAS ON THE BODY 12/14/19 24 Active nystatin (NYSTOP) powder APPLY TO THE AFFECTED AREAS UNDER THE BREAST AND GROIN AREA ONCE DAILY AFTER SHOWERS 12/14/19 24 Active cyanocobalamin, vitamin B-12, 1000 MCG tabletIndication s:Vitamin B 12 deficiency TAKE 1 TABLET BY MOUTH EVERY DAY 90 tablet 1 04/14/19 25 Active omeprazole (PRILOSEC) 20 MG capsule 1 capsule. Active albuterol 90 mcg/actuation inhaler Inhale 2 puffs into the lungs every 6 (six) hours as needed for wheezing. 6.7 g 05/17/19 25 Active cyclobenzaprine (FLEXERIL) 5 MG tabletIndication s:Fibromyalgia,C hronic left-sided low back pain with left-sided sciatica Take 1-2 tabs for muscle spasm as needed 180 tablet 1 10/14/19 25 Active ibuprofen (ADVIL,MOTRIN) 600 MG tabletIndication s:Chronic left-sided low back pain with left-sided sciatica Take 1 tab twice daily with food as needed for pain 180 tablet 1 10/14/19 25 Active cholecalciferol (VITAMIN D3) 5,000 unit capsuleIndicatio ns:Vitamin D deficiency TAKE 1 CAPSULE (5,000 UNITS TOTAL) BY MOUTH DAILY FOR 180 DOSES. 90 capsule 1 11/15/19 25 026 Active cholecalciferol (VITAMIN D3) 5,000 unit capsuleIndicatio ns:Vitamin D deficiency Take 1 capsule (5,000 Units total) by mouth daily for 180 doses. 90 capsule 1 09/18/19 24 025 Discontinued Active Problems Problem Noted Date Diagnosed Date Heat intolerance 10/13/2024 Vitamin B12 deficiency 10/13/2024 Vitamin D deficiency, unspecified 09/16/2023 Fatigue 09/16/2023 Assessment & Plan (11/12/2024 8:45 PM EDT): Balance rest and activity. Keep well-hydrated. Eat well-balanced nutritionally diet. Gentle, regular exercise as tolerated. Adhere to age-appropriate screenings and preventive strategies. Avoid falls, injuries, overuse, sunburn and sick contacts Continue regular hobbies and favorite activities. Assessment & Plan (09/19/2023 4:20 PM EDT): [...] 49.9 in adult 09/16/2023 Assessment & Plan (11/12/2024 8:46 PM EDT): Congratulations on losing 11 pound from 296 on 01/06/2024 down to 284 today and keep it off. Continue diligent portion control. Limit concentrated sugars, saturated fats and calories in the diet. Keep well-hydrated. If unable to achieve expected goal consider formal dietary/nutritional support. Assessment & Plan (01/24/2024 10:38 PM EST): [...] room steadily. Fibromyalgia 12/16/2017 Assessment & Plan (11/12/2024 8:46 PM EDT): She was able to taper off of Lyrica about 12 months ago and does not feel worse without it in fact she feels a bit better intermittently. Listen regularly to [facility] guide to pain relief audiobook. Sleep hygiene. Proper hydration. Well-balanced nutritionally diet. Gentle, regular exercise as tolerated. Balance rest and activity. Keep regular engagement in hobbies/favorite activities. May benefit from warm pool therapy at [facility]. Continue listening to audiobook written by Dr Phil [facility] addressing management strategies for patients with [...] bit better intermittently. Listen regularly to [facility] guide to pain relief audiobook. Sleep hygiene. [...] bit better intermittently. Listen regularly to [facility] guide to pain relief audiobook. Sleep hygiene. [...] a bit better. Listen regularly to [facility] guide to pain relief audiobook. Sleep hygiene. [...] problems or questions. Listen regularly to [facility] guide to pain relief audiobook. Sleep hygiene. [...] daily as prescribed. Listen regularly to [facility] guide to pain relief audiobook. Sleep hygiene. [...] daily as prescribed. Listen regularly to [facility] guide to pain relief audiobook. Sleep hygiene. [...] 7:05 PM EDT): Listen regularly to [facility] guide to pain relief audiobook. Sleep hygiene. Proper hydration. Well-balanced nutritionally diet. Gentle, regular exercise as tolerated. Balance rest and activity. Keep regular engagement in hobbies/favorite activities. Continue listening to audiobook written by Dr Phil persaud addressing management strategies for patients with fibromyalgia utilizing mindfulness approach Assessment & Plan (02/24/2019 11:00 AM EST): Listening regularly to [facility] guide to pain relief audiobook. Sleep hygiene. Proper hydration. Well-balanced nutritionally diet. Gentle, regular exercise as tolerated. Balance rest and activity. Keep regular engagement in hobbies/favorite activities. Continue listening to audiobook written by Dr Phil persaud addressing management strategies for patients with fibromyalgia utilizing mindfulness approach Assessment & Plan (05/25/2018 11:46 PM EST): Listening regularly to [facility] guide to pain relief audiobook. Sleep hygiene. [...] Encounters Date Type Department Care Team Description 11/12/2024 Refill [facility] Rheumatology [address] [place] [address] Rika Chrales MD Medication Refill 10/13/2024 3:30 PM EDT - 10/13/2024 11:59 PM EDT Hospital Encounter [facility] [address] [place] [address] Rika Charles MD Discharge Disposition: Home or Self Care 10/13/2024 2:30 PM EDT Office Visit [facility] Rheumatology [address] [place] [address] Rika Charles MD Fibromyalgia (Primary Dx); Chronic [...] Description 04/17/2025 2:00 PM EST Office Visit [facility] Rheumatology [address] [place] [address] Rika Charles MD [address] [facility], [address] [place] [address] [email or web address] Due Date Last Done Comments DEPRESSION SCREENING 2003 SMOKING Hx and SMOKELESS TOBACCO SCREENING 2004 HEPATITIS C SCREENING 2009 HIV ONE-TIME SCREENING (18-6 5 YEARS) 2009 PAP SMEAR 2012 INFLUENZA VACCINE (#1) 2024 03/03/2019 COVID-19 VACCINE (2024-2 6 season) 2024 10/31/2020, 10/07/2020 Adult Td,Tdap Booster 09/03/2027 09/02/2017 [...] EDT) SODIUM 140 133 - 146 mmol/L [facility] POTASSIUM 4.6 3.3 - 5.1 mmol/L [facility] CHLORIDE 103 96 - 108 mmol/L [facility] CO2 25 21 - 35 mmol/L [facility] BUN 8 6 - 19 mg/dL [facility] CREATININE 0.70 0.5 - 1.5 mg/dL [facility] GLUCOSE 99 70 - 99 mg/dL [facility] ALBUMIN 4.4 3.9 - 4.8 g/dL [facility] TOTAL PROTEIN 7.3 6.5 - 8.0 g/dL [facility] CALCIUM 9.6 8.4 - 10.3 mg/dL [facility] ALKALINE PHOSPHATASE 82 39 - 117 U/L [facility] TOTAL BILIRUBIN 0.3 0.0 - 1.2 mg/dL [facility] AST 25 0 - 37 U/L [facility] ALT 26 0 - 40 U/L [facility] GLOBULIN 2.9 1 - 4.8 g/dL [facility] EGFR 117 >59 mL/min/1.7 3m2 [facility] Comment:Estimated glomerular filtration rate calculated using the CKD-EPI refit equation. ANION GAP 17 10 - 20 mmol/L [facility] Blood 10/13/2024 3:35 PM EDT 10/13/2024 3:46 PM EDT us Rika Charles MD LAB BLOOD ORDERABLES Fin al Result [facility] [address] [place] [address] * TSH with reflex (10/13/2024 3:35 PM EDT) TSH 1.08 0.27 - 4.20 uIU/mL [facility] Blood 10/13/2024 3:35 PM EDT 10/13/2024 3:46 PM EDT Rika Charles MD LAB BLOOD ORDERABLES Fin al Result Performing Organization Address City/[facility]/ZIP Co de Phone Number [address] [address] * Sedimentation rate (ESR) (10/13/2024 3:35 PM EDT) ESR 7 0 - 20 mm/h [facility] Blood 10/13/2024 3:35 PM EDT 10/13/2024 3:46 PM EDT us Rika Charles MD LAB BLOOD ORDERABLES Fin al Result Performing Organization Address City/[facility]/ZIP Co de Phone Number [address] [address] * CBC and differential (10/13/2024 3:35 PM EDT) WBC 9.30 4.00 - 11.00 K/uL [facility] RBC 4.55 4.00 - 5.20 M/uL [facility] HGB 13.3 12.0 - 16.0 g/dL [facility] HCT 40.3 36.0 - 46.0 % [facility] PLT 298 150 - 450 K/uL [facility] MCV 88.6 80.0 - 100.0 [facility] MCH 29.2 27.0 - 31.0 pg [facility] MCHC 33.0 32.0 - 36.0 g/dL [facility] RDW 13.8 11.5 - 14.5 % [facility] MPV 11.1 8.4 - 12.0 [facility] NRBC 0.00 0.00 /100 WBCs [facility] ABSOLUTE NRBC 0.00 0.00 K/uL [facility] DIFF METHOD Auto [facility] NEUTS 70.4 48.0 - 76.0 % [facility] LYMPHS 21.3 18.0 - 41.0 % [facility] MONOS 6.8 4.0 - 11.0 % [facility] EOS 0.8 0.0 - 5.0 % [facility] BASOS 0.2 0.0 - 1.5 % [facility] Granulocytes, immature (%) 0.5 0.0 - 0.9 % [facility] ABSOLUTE NEUTS 6.55 1.92 - 7.60 K/uL [facility] ABSOLUTE LYMPHS 1.98 0.72 - 4.10 K/uL [facility] ABSOLUTE MONOS 0.63 0.16 - 1.10 K/uL [facility] ABSOLUTE EOS 0.07 0.00 - 0.50 K/uL [facility] ABSOLUTE BASOS 0.02 0.00 - 0.15 K/uL [facility] Granulocytes, immature 0.05 0.00 - 0.09 K/uL [facility] Blood 10/13/2024 3:35 PM EDT 10/13/2024 3:46 PM EDT us Rika Charles MD LAB BLOOD ORDERABLES Fin al Result [address] [address] * (ABNORMAL) C-Reactive Protein (10/13/2024 3:35 PM EDT) C REACTIVE PROTEIN 9.7(H) 0.0 - 4.0 mg/L [facility] Blood 10/13/2024 3:35 PM EDT 10/13/2024 3:46 PM EDT us Rika Charles MD LAB BLOOD ORDERABLES Fin al Result [address] [address] * Vitamin B12 (10/13/2024 3:35 PM EDT) VITAMIN B12 464 232 - 1,245 pg/mL [facility] Blood 10/13/2024 3:35 PM EDT 10/13/2024 3:46 PM EDT us Rika Charles MD LAB BLOOD ORDERABLES Fin al Result [address] [address] * (ABNORMAL) CPK (creatine kinase) (10/13/2024 3:35 PM EDT) CREATINE KINASE 264(H) 21 - 215 U/L [facility] Blood 10/13/2024 3:35 PM EDT 10/13/2024 3:46 PM EDT us Rika Charles MD LAB BLOOD ORDERABLES Fin al Result Performing Organization Address City/[facility]/ZIP Co de Phone Number [address] [address] from Last 3 Months Insurance [id number] [place] [address] [facility] * Guarantor: Jessica Montoya Account Type Relation to Patient Date of Phone Billing Address Personal/Family Self 1990 [address] [id number] [place] [address] [facility] * Guarantor: Jessica Montoya Account Type Relation to Patient Date of Phone Billing Address Personal/Family Self 1990 [address] [id number] [place], [place] [facility] * Guarantor: Jessica Montoya Account Type Relation to Patient Date of Phone Billing Address Personal/Family Self 1990 [address] [id number] [place], [place] [facility] * Guarantor: Jessica Montoya Account Type Relation to Patient Date of Phone Billing Address Personal/Family Self 1990 [address] [facility] [id number] [place] [address] [facility] * Guarantor: Jessica Montoya Account Type Relation to Patient Date of Phone Billing Address Personal/Family Self 1990 [address] [facility] [id number] [place] [address] [facility] * Guarantor: JanJessica rubi Account Type Relation to Patient Date of Phone Billing Address Personal/Family Self 1990 [address] [facility] [id number] [place] [address] * Guarantor: JanJessica rubi Account Type Relation to Patient Date of Phone Billing Address Personal/Family Self 1990 [address] [facility] [address] [id number] [place] [address] * Guarantor: Jessica Montoya Account Type Relation to Patient Date of Phone Billing Address Personal/Family Self 1990 [address] [facility] [address] [id number] [place] [address] Care Teams Produce Assistant Relationship Specialty Start Date End Date Darlin Bob MD [facility] [place] [address] PCP - General Internal Medicine 09/08/17 Additional Source Comments The information contained in this document represents components of the legal health record. It is not the complete legal health record.[facility]
== END 2024-11-30 09:01 | disposition home or self-care (01) ==
LOC: HO.HMGAL 08:46
PROVIDERS: PCP Internal Medicine; Visit Provider Registered Nurse Emergency
DX: J30.89 Other allergic rhinitis (principal)
CPT/HCPCS: 95117; 95165

== ENCOUNTER 2025-01-04 11:17 | Outpatient (AMB) | payer OTHER, SELFPAY ==
--- OUTSIDE RECORDS SUMMARY | 2025-01-04 13:59 | XMS_ITS | Clinical Summary ---
Author Organization [facility] Address [address] [place] [address] Phone Care Team Providers Care Garde Manager Name Role Phone Darlin Bob MD Primary Care Provider Allergies Active Allergy Reactions Criticality Noted Date Comments Other 12/16/2017 Seasonal Sumatriptan 03/26/2018 Other reaction(s): Unknown Medications FLUoxetine (PROZAC) 20 MG tablet Take 60 mg by mouth daily. Active lamoTRIgine (LAMICTAL) 25 MG tablet Take 50 mg by mouth daily. Active dexmethylphenidat e (FOCALIN XR) 25 mg 24 hr capsule [...] 4 Active cyanocobalamin, vitamin B-12, 1000 MCG tabletIndications :Vitamin B 12 deficiency TAKE 1 TABLET BY MOUTH EVERY DAY 90 tablet 1 5 Active omeprazole (PRILOSEC) 20 MG capsule 1 capsule. Active albuterol 90 mcg/actuation inhaler Inhale 2 puffs into the lungs every 6 (six) hours as needed for wheezing. 6.7 g 5 Active cyclobenzaprine (FLEXERIL) 5 MG tabletIndications :Fibromyalgia,Chr onic left-sided low back pain with left-sided sciatica Take 1-2 tabs for muscle spasm as needed 180 tablet 1 5 Active ibuprofen (ADVIL,MOTRIN) 600 MG tabletIndications :Chronic left-sided low back pain with left-sided sciatica Take 1 tab twice daily with food as needed for pain 180 tablet 1 5 Active cholecalciferol (VITAMIN D3) 5,000 unit capsuleIndication s:Vitamin D deficiency TAKE 1 CAPSULE (5,000 UNITS TOTAL) BY MOUTH DAILY FOR 180 DOSES. 90 capsule 1 5 05/13/19 26 Active Active Problems Problem Noted Date Diagnosed Date [...] bit better intermittently. Listen regularly to [facility] guide to pain relief audiobook. Sleep hygiene. Proper hydration. Well-balanced nutritionally diet. Gentle, regular exercise as tolerated. Balance rest and activity. Keep regular engagement in hobbies/favorite activities. May benefit from warm pool therapy at [facility]. Continue listening to audiobook written by Dr [...] bit better intermittently. Listen regularly to [facility] guide to pain relief audiobook. Sleep [...] bit better intermittently. Listen regularly to [facility] guide to pain relief audiobook. Sleep [...] a bit better. Listen regularly to [facility] guide to pain relief audiobook. Sleep [...] problems or questions. Listen regularly to [facility] guide to pain relief audiobook. Sleep [...] daily as prescribed. Listen regularly to the [facility] guide to pain relief audiobook. Sleep [...] daily as prescribed. Listen regularly to the [facility] guide to pain relief audiobook. Sleep [...] 7:05 PM EDT): Listen regularly to the [facility] guide to pain relief audiobook. Sleep hygiene. Proper hydration. Well-balanced nutritionally diet. Gentle, regular exercise as tolerated. Balance rest and activity. Keep regular engagement in hobbies/favorite activities. Continue listening to audiobook written by Dr Phil persaud addressing management strategies for patients with fibromyalgia utilizing mindfulness approach Assessment & Plan (02/24/2019 11:00 AM EST): Listening regularly to the [facility] guide to pain relief audiobook. Sleep hygiene. Proper hydration. Well-balanced nutritionally diet. Gentle, regular exercise as tolerated. Balance rest and activity. Keep regular engagement in hobbies/favorite activities. Continue listening to audiobook written by Dr Phil [facility] addressing management strategies for patients with fibromyalgia utilizing mindfulness approach Assessment & Plan (05/25/2018 11:46 PM EST): Listening regularly to the [facility] guide to pain relief audiobook. Sleep [...] Type Department Care Team Description 11/12/2024 Refill [facility] Rheumatology [address] [place] [address] [place] [address] Rika Charles MD Medication Refill 10/13/2024 3:30 PM EDT - 10/13/2024 11:59 PM EDT Hospital Encounter [facility] [address] [place] [address] [place] [address] Rika Charles MD Discharge Disposition: Home or Self Care 10/13/2024 2:30 PM EDT Office Visit [facility] Rheumatology [address] [place] [address] Rika Charles MD Fibromyalgia (Primary Dx); Chronic [...] Description 04/17/2025 2:00 PM EST Office Visit [facility] Rheumatology [address] [place] [address] Rika Charles MD [address] [place] [address], [address] [place] [address] [email or web address] Due Date Last Done Comments DEPRESSION SCREENING 2003 SMOKING Hx and SMOKELESS TOBACCO SCREENING 2004 HEPATITIS C SCREENING 2009 HIV ONE-TIME SCREENING (18-6 5 YEARS) 2009 PAP SMEAR 2012 INFLUENZA VACCINE (#1) 2024 03/03/2019 COVID-19 VACCINE (3 2024-2 6 season) 2024 10/31/2020, 10/07/2020 Adult Td,Tdap [...] EDT) SODIUM 140 133 - 146 mmol/L [facility] POTASSIUM 4.6 3.3 - 5.1 mmol/L [facility] CHLORIDE 103 96 - 108 mmol/L [facility] CO2 25 21 - 35 mmol/L [facility] BUN 8 6 - 19 mg/dL [facility] CREATININE 0.70 0.5 - 1.5 mg/dL [facility] GLUCOSE 99 70 - 99 mg/dL [facility] ALBUMIN 4.4 3.9 - 4.8 g/dL [facility] TOTAL PROTEIN 7.3 6.5 - 8.0 g/dL [facility] CALCIUM 9.6 8.4 - 10.3 mg/dL [facility] ALKALINE PHOSPHATASE 82 39 - 117 U/L [facility] TOTAL BILIRUBIN 0.3 0.0 - 1.2 mg/dL [facility] AST 25 0 - 37 U/L [facility] ALT 26 0 - 40 U/L [facility] GLOBULIN 2.9 1 - 4.8 g/dL [facility] EGFR 117 >59 mL/min/1.7 3m2 [facility] Comment:Estimated glomerular filtration rate calculated using the CKD-EPI refit equation. ANION GAP 17 10 - 20 mmol/L [facility] Blood 10/13/2024 3:35 PM EDT 10/13/2024 3:46 PM EDT us Rika Charles MD LAB BLOOD ORDERABLES Fin al Result [facility] [address] [place] [address] * TSH with reflex (10/13/2024 3:35 PM EDT) TSH 1.08 0.27 - 4.20 uIU/mL [facility] Blood 10/13/2024 3:35 PM EDT 10/13/2024 3:46 PM EDT us Rika Charles MD LAB BLOOD ORDERABLES Fin al Result Performing Organization Address City/[facility] Co de Phone Number [address] [address] * Sedimentation rate (ESR) (10/13/2024 3:35 PM EDT) ESR 7 0 - 20 mm/h [facility] Blood 10/13/2024 3:35 PM EDT 10/13/2024 3:46 PM EDT us Rika Charles MD LAB BLOOD ORDERABLES Fin al Result Performing Organization Address [facility] de Phone Number [address] [address] * CBC and differential (10/13/2024 3:35 PM EDT) WBC 9.30 4.00 - 11.00 K/uL [facility] RBC 4.55 4.00 - 5.20 M/uL [facility] HGB 13.3 12.0 - 16.0 g/dL [facility] HCT 40.3 36.0 - 46.0 % [facility] PLT 298 150 - 450 K/uL [facility] MCV 88.6 80.0 - 100.0 [facility] MCH 29.2 27.0 - 31.0 pg [facility] MCHC 33.0 32.0 - 36.0 g/dL [facility] RDW 13.8 11.5 - 14.5 % [facility] MPV 11.1 8.4 - 12.0 [facility] NRBC 0.00 0.00 /100 WBCs [facility] ABSOLUTE NRBC 0.00 0.00 K/uL [facility] DIFF METHOD Auto [facility] NEUTS 70.4 48.0 - 76.0 % [facility] LYMPHS 21.3 18.0 - 41.0 % [facility] MONOS 6.8 4.0 - 11.0 % [facility] EOS 0.8 0.0 - 5.0 % [facility] BASOS 0.2 0.0 - 1.5 % [facility] Granulocytes, immature (%) 0.5 0.0 - 0.9 % [facility] ABSOLUTE NEUTS 6.55 1.92 - 7.60 K/uL [facility] ABSOLUTE LYMPHS 1.98 0.72 - 4.10 K/uL [facility] ABSOLUTE MONOS 0.63 0.16 - 1.10 K/uL [facility] ABSOLUTE EOS 0.07 0.00 - 0.50 K/uL [facility] ABSOLUTE BASOS 0.02 0.00 - 0.15 K/uL [facility] Granulocytes, immature 0.05 0.00 - 0.09 K/uL [facility] Blood 10/13/2024 3:35 PM EDT 10/13/2024 3:46 PM EDT us Rika Charles MD LAB BLOOD ORDERABLES Fin al Result [address] [address] * (ABNORMAL) C-Reactive Protein (10/13/2024 3:35 PM EDT) C REACTIVE PROTEIN 9.7(H) 0.0 - 4.0 mg/L [facility] Blood 10/13/2024 3:35 PM EDT 10/13/2024 3:46 PM EDT Rika Charles MD LAB BLOOD ORDERABLES Fin al Result [address] [address] * Vitamin B12 (10/13/2024 3:35 PM EDT) VITAMIN B12 464 232 - 1,245 pg/mL [facility] Blood 10/13/2024 3:35 PM EDT 10/13/2024 3:46 PM EDT us Rika Charles MD LAB BLOOD ORDERABLES Fin al Result Performing Organization Address City/[facility]/ZIP Co de Phone Number [address] [address] * (ABNORMAL) CPK (creatine kinase) (10/13/2024 3:35 PM EDT) CREATINE KINASE 264(H) 21 - 215 U/L [facility] Blood 10/13/2024 3:35 PM EDT 10/13/2024 3:46 PM EDT us Rika Charles MD LAB BLOOD ORDERABLES Fin al Result Performing Organization Address City/[facility] Co de Phone Number [address] [address] from Last 3 Months Insurance [facility] [employer] * Guarantor: Jessica Montoya Account Type Relation to Patient Date of Phone Billing Address Personal/Family Self 1990 [id number] [place] [address] [facility] [employer] * Guarantor: Jessica Montoya Account Type Relation to Patient Date of Phone Billing Address Personal/Family Self 1990 [id number] [place] [address] [facility] [employer] * Guarantor: Jessica Montoya Account Type Relation to Patient Date of Phone Billing Address Personal/Family Self 1990 [id number] [place] [address] [facility] [employer] * Guarantor: Jessica Monotya Account Type Relation to Patient Date of Phone Billing Address Personal/Family Self 1990 [id number] [place] [address] [facility] [employer] * Guarantor: Jessica Montoya Account Type Relation to Patient Date of Phone Billing Address Personal/Family Self 1990 [address] [id number] [place] [address] [facility] * Guarantor: Jessica Montoya Account Type Relation to Patient Date of Phone Billing Address Personal/Family Self 1990 [address] [facility] [id number] [place] [address] * Guarantor: Jan, Jessica Account Type Relation to Patient Date of Phone Billing Address Personal/Family Self 1990 [address] [facility] [id number] [place] [address] * Guarantor: JanJessica Account Type Relation to Patient Date of Phone Billing Address Personal/Family Self 1990 [address] [id number] [place] [address] Care Teams Garde Manager Relationship Specialty Start Date End Date Darlin Bob MD [address] [facility] [place] [address] PCP - General Internal Medicine 09/08/17 Additional Source Comments The information contained in this document represents components of the legal health record. It is not the complete legal health record.[facility]
--- OUTSIDE RECORDS SUMMARY | 2025-01-04 13:59 | XMS_ITS | Patient Health Record ---
Author Organization [facility] Address [address] [place] [address] Support Name Relationship Address Phone DEANNA, SUSAN Emergency Contact [address] [place], [place] [id number] PEMA HUERTA Guarantor Unknown [phone] Care Team Providers Care Developer Automatic Name Role Phone Lisbeth TEMPLE, Darlin Primary [...] MG 1 capsule Orally Onc e a day; Duration: 30 day(s) Active Focalin XR 40 MG [...] ee times a day Active Vitamin D3 51438 UNIT TK 1 C PO WEEKLY Orally [...] Problem Status W/U Status Risk Notes Problem Gastroesophageal reflux disease without esophagitis (926726843) Gastroesophageal reflux disease without esophagitis (K21.9) Active confirmed Problem Nausea and vomiting (43748630) Nausea and vomiting, unspecified intactability, vomiting of unspecified type (R11.2) Active confirmed Problem Anemia (868043411) Anemia, unspecified type (D64.9) Active confirmed Problem Irritable bowel syndrome (82380085) Irritable bowel syndrome with both constipation and diarrhea (K58.2) Active confirmed Plan Of Treatment Pending Test Test Name Order Date IRON + IBC (FE) 04/02/2018 FERRITIN 04/02/2018 CBC w/o DIFF 04/02/2018 Insurance Providers Payer Name Payer Address Payer Phone Subscriber Number Group Number Insured Name Patient Relationship to Insured Coverage Start Date Coverage End Date [facility] [address] [address] [place], [place] [id number] PEMA HUERTA Self - patient is the insured Medical (General) History Medical History History ICD Code fibromyalgia headaches Denies [place],DM,CVA,Lung disease,renal dise ase allergies Surgical History Surgery Date(Month/Year) eardrum colapse repair 2003
--- OUTSIDE RECORDS SUMMARY | 2025-01-04 13:59 | XMS_ITS | Clinical Summary ---
Author Organization [facility] Address [address] [place] [address] [address] [place] [address] Care Team Providers Care Side Framer Name Role Phone Unavailable Primary Care Provider Unavailabl e Allergies Active Allergy Reactions Criticality Noted Date Comments Other 12/16/2017 Seasonal Sumatriptan 03/26/2018 Other reaction(s): Unknown Medications BP Wash 10 % external wash APPLY TO THE AFFECTED AREAS ON BODY EVERY OTHER DAY 2 Active betamethasone dipropionate (Diprolene) 0.05 % ointment PLEASE SEE ATTACHED FOR DETAILED DIRECTIONS 2 Active buPROPion XL (Wellbutrin XL) 150 MG 24 hr tablet Take 150 mg by mouth in the morning. 2 Active Hibiclens 4 % external liquid USE EVERY OTHER DAY BODY WASH TO AFFECTED AREAS ON THE BODY 2 Active cyclobenzaprine (Flexeril) 5 MG tablet Take 5 mg by mouth at bedtime. 2 Active Focalin XR 40 MG 24 hr capsule Take 40 mg by mouth in the morning. 2 Active FLUoxetine (PROzac) 20 MG capsule Take 60 mg by mouth in the morning. 2 Active ketoconazole (NIZOral) 2 % shampoo PLEASE SEE ATTACHED FOR DETAILED DIRECTIONS 2 Active lamoTRIgine (LaMICtal) 25 MG tablet Take 1 tablet by mouth in the morning. 2 Active levocetirizine (Xyzal) 5 MG tablet Take 5 mg by mouth in the morning. 2 Active Melatonin Maximum Strength 5 MG tablet Take 1 tablet by mouth at bedtime. 2 Active meloxicam (Mobic) 15 MG tablet TAKE 1 TABLET BY MOUTH EVERY DAY FOR 14 DAYS 2 Active methocarbamol (Robaxin) 750 MG tablet TAKE 1 TABLET BY MOUTH EVERY 8 HOURS NEEDED FOR PAINFUL MUSCLE SPASMS 2 Active ondansetron ODT (Zofran-ODT) 8 MG disintegrating tablet TAKE 1 TABLET BY MOUTH EVERY 12 HOURS NEEDED FOR NAUSEA AND VOMITING 2 Active ondansetron (Zofran) 4 MG tablet TAKE 1 TABLET BY MOUTH EVERY DAY NEEDED FOR NAUSEA AND VOMITING 2 Active oxyCODONE (Oxy-IR) 5 MG immediate release capsule TAKE 1 CAPSULE BY MOUTH EVERY 6 HOURS NEEDED FOR PAIN 2 Active predniSONE (Deltasone) 20 MG tablet TAKE 3 TABLETS BY MOUTH EVERY DAY FOR 5 DAYS 2 Active sertraline (Zoloft) 50 MG tablet Take 50 mg by mouth in the morning. 1 Active traZODone (Desyrel) 50 MG tablet Take 50 mg by mouth in the morning. 2 Active calcium carbonate (Tums) 250 mg (southern ute 100 mg) chewable split tablet Take by mouth. Activ e cholecalciferol (Vitamin D3) 1.25 MG (33911 UT) tablet TK 1 C PO WEEKLY Active fluticasone (Flonase) 50 MCG/ACT nasal spray Administer into affected nostril(s). Active cholecalciferol (Vitamin D-3) 125 MCG (5000 UT) capsule Take 5,000 Units by mouth in the morning. 2 Active cetirizine (ZyrTEC) 10 MG tablet Take 1 tablet by mouth in the morning. Active fluticasone (Flonase Sensimist) 27.5 MCG/SPRAY nasal spray SPRAY 2 SPRAYS IEN QD 0 Active FLUoxetine HCl, PMDD, 20 MG tablet Take 40 mg by mouth in the morning. Active FLUoxetine (PROzac) 10 MG capsule daily. Active diphenhydrAMINE (BENADryl) 50 MG capsule 1 capsule as needed 9 Active dicyclomine (Bentyl) 10 MG capsule 4 times a day. Activ e cyanocobalamin (Vitamin B-12) 1000 MCG tablet Take 1,000 mcg by mouth in the morning. Active clindamycin-benzoy l peroxide (BenzacLIN) gel Apply topically. Active fluticasone (Flonase) 50 MCG/ACT nasal spray daily. Active ibuprofen 800 MG tablet TK 1 T PO QD WF OR MILK PRN Active ketoconazole (NIZOral) 2 % shampoo daily. Active lamoTRIgine (LaMICtal) 25 MG tablet twice a day. Active levocetirizine (Xyzal) 5 MG tablet Take 1 tablet by mouth in the morning. 0 Active metoclopramide (Reglan) 10 MG tablet as directed 9 Active Multiple Vitamins-Iron (Daily Evelio Multivitamin/Iron) tablet Take by mouth. 0 Active naproxen (Naprosyn) 500 MG tablet daily. Active norethindrone (Norlyda) 0.35 MG tablet Take 1 tablet by mouth in the morning. 1 Active nortriptyline (Pamelor) 25 MG capsule TK 1 C PO QHS Active omeprazole (PriLOSEC) [address] capsule daily. 0 Active omeprazole OTC (PriLOSEC OTC) 20 MG EC tablet Take 20 mg by mouth before breakfast. Active pregabalin (Lyrica) 150 MG capsule 3 times a day. Activ e 28-0.8 MG tablet Take 1 tablet by mouth in the morning. Active topiramate 50 MG tablet daily. Active betamethasone dipropionate 0.05 % cream Apply topically. Active dexmethylphenidate XR (Focalin XR) 40 MG 24 hr capsule daily. Act rigoberto traZODone (Desyrel) 50 MG tablet Take 50 mg by mouth in the morning. 2 Active Immunizations Immunization Administration Dates Next Due DTP 1991,1991,1991 DTaP 04/06/1995,03/20/1993 DTaP / HiB / IPV 09/19/1992,1991, 2,1991 HPV, Quadrivalent 06/15/2006 Hep B, Adolescent or Pediatric 11/09/1995,1995,04/06/1995 IPV 04/06/1995,03/20/1993 Influenza, IIV3, injectable 12/21/2017 MMR 04/11/1996,09/19/1992 OPV, Trivalent 1991,1991 Td (adult) 11/13/2003 Tdap 06/07/2008 Social History Tobacco Use Types Packs/Day Years Used Date Smoking Tobacco: Never Smokeless Tobacco: Former Tobacco Cessation:Counseling Given: Not Answered Alcohol Use Standard Drinks/Week Comments Yes 0 (1 standard drink = 0.6 oz pur e alcohol) Comments Unknown Sex and Gender Information Value Date Recorded Sex Assigned at Female 02/20/2022 11:09 AM EST Legal Sex Female 9:25 AM EST Gender Identity Female 02/20/2022 11:09 AM EST Sexual Orientation Choose not to disclose 2022 1:39 PM EST Last Filed Vital Signs Vital Sign Reading Time Taken Comments Blood Pressure 126/78 02/21/2022 2:33 PM EST Pulse 68 02/21/2022 2:47 PM EST Temperature - - Respiratory Rate - - Oxygen Saturation - - Inhaled Oxygen Concentration - - Weight - - Height - - Body Mass Index - - Plan of Treatment Health Maintenance Due Date Last Done Comments Dental Prophylaxis 1991 Depression Screening 1991 Lipid Panel 1991 SDOH Screening 1991 Disability Screening 1991 Alcohol/Substance Use Screening 2003 Family Planning (PISQ) 2006 HPV Vaccines (2 - 3-dose series) 07/13/2006 06/15/2006 Hepatitis C Screening 2009 Pap Smear 2012 DTaP/Tdap/Td Vaccines (7 - Td or Tdap) 06/07/2018 06/07/2008, 11/13/2003, 04/06/1995, Additional history exists Cervical Cancer Screening 2021 HPV/Cotest 2021 Dental Oral Exam 08/22/2022 02/20/2022 Dental X-Ray: Bitewings 02/21/2023 02/20/2022 Tobacco Screening 02/21/2023 02/21/2022 COVID-19 Vaccine ( season) 2024 Influenza Vaccine (#1) 2024 12/21/2017 Dental X-Ray: Full Mouth 02/21/2025 02/20/2022 Zoster Vaccines (1 of 2) 2041 RSV Patients and Patients Aged 60 years or older (1 - 1-dose 75+ series) 2066 HIB Vaccines Completed 09/19/1992, 07/0 03/1991, 1991, Additional history exists IPV Vaccines Completed 04/06/1995, 122 11/1992, 09/19/1992, Additional history exists Hepatitis B Vaccines Completed 11/09/1995, 05/12/1995, 04/06/1995 HIV Screening Completed 06/27/2022 Hepatitis A Vaccines Aged Out No long er eligible based on patient's age to complete this topic Meningococcal B Vaccine Aged Out No l onger eligible based on patient's age to complete this topic Meningococcal Vaccine Aged Out No woody josé miguel eligible based on patient's age to complete this topic Pneumococcal Vaccine: Pediatrics (0 to 5 Years) and At-Risk Patients (6 to 49) Years Aged Out No longer eligible based on patient's age to complete this topic RSV under 20 months Aged Out No longe r eligible based on patient's age to complete this topic Rotavirus Vaccines Aged Out No longer eligible based on patient's age to complete this topic Procedures Procedure Name Priority Date/Time Associated Diagnosis Comments INTRAORAL - COMPLETE SERIES OF RADIOGRAPHIC IMAGES Routine 02/20/2022 11:00 AM EST COMPREHENSIVE ORAL EVALUATION - NEW OR ESTABLISHED PATIENT Routine 02/20/2022 11:00 AM EST from Last 3 Months or Most Recently Relevant to Health Maintenance Insurance [address] [place] [address] [facility] MEDICAID STAND ADULT [address] [place] [address]
--- OUTSIDE RECORDS SUMMARY | 2025-01-04 13:59 | XMS_ITS | Encounter Summary ---
Author Organization [facility] Address [address] [facility] [address] [place] [address] Care Team Providers Care Matcher [employer] Name Role Phone Unavailable Primary Care Provider Unavailabl e Encounter Details Date Type Department Care Team ([facility] st Contact Info) Description 03/14/2022 Abstract [facility] ADULT DENTAL [address] [place] [address] Chau Min DDS [address] [place] [address] Social History Tobacco Use Types Packs/Day Years Used Date Smoking Tobacco: Never Smokeless Tobacco: Former Alcohol Use Standard Drinks/Week Comments Yes 0 (1 standard drink = 0.6 oz pur e alcohol) Comments Unknown Sex and Gender Information Value Date Recorded Sex Assigned at Female 02/20/2022 11:09 AM EST Legal Sex Female 9:25 AM EST Gender Identity Female 02/20/2022 11:09 AM EST Sexual Orientation Choose not to disclose 2022 1:39 PM EST COVID-19 Exposure Response Date Recorded In the last 10 days, have yo u been in contact with someone who was confirmed or suspected to have Coronavirus/COVID-19? No / Unsure 02/20/2022 10:58 AM EST documented as of this encounter Plan of Treatment Not on file documented as of this encounter Visit Diagnoses Not on filedocumented in this encounter
== END 2025-01-04 11:17 | disposition home or self-care (01) ==
LOC: HO.HMGAL 11:17
PROVIDERS: PCP Internal Medicine; Visit Provider Registered Nurse Emergency
DX: J30.89 Other allergic rhinitis (principal)
CPT/HCPCS: 95117; 95165

== ENCOUNTER 2025-01-24 11:02 | Outpatient (REF) | payer OTHER, SELFPAY ==
--- NOTE | ~2025-01-24 | XR_ITS ---
EXAMINATION: XR SACRUM COCCYX 2 OR MORE VIEWS, XR SACROILIAC JOINT 3 OR MORE VIEWS HISTORY: W11.XXXA - Fall on and from ladder, initial encounter COMPARISON: Correlation is made to plain films of the sacroiliac joints dated 10/28/2016. FINDINGS: Three views of the sacrum and coccyx and 3 additional views of the bilateral sacroiliac joints are submitted. The sacrum is intact. No lytic lesion or fracture is identified. The sacroiliac joints are maintained. No erosions are seen. XR/XR sacrum coccyx min 2V IMPRESSION: Unremarkable examination of the sacrum and coccyx and sacroiliac joints. Electronically signed by: Kamran Zamudio MD 01/24/2025 12:38 PM MISAEL
--- NOTE | ~2025-01-24 | XR_ITS ---
EXAMINATION: XR SACRUM COCCYX 2 OR MORE VIEWS, XR SACROILIAC JOINT 3 OR MORE VIEWS HISTORY: W11.XXXA - Fall on and from ladder, initial encounter COMPARISON: Correlation is made to plain films of the sacroiliac joints dated 10/28/2016. FINDINGS: Three views of the sacrum and coccyx and 3 additional views of the bilateral sacroiliac joints are submitted. The sacrum is intact. No lytic lesion or fracture is identified. The sacroiliac joints are maintained. No erosions are seen. XR/XR sacroiliac joint min 3V IMPRESSION: Unremarkable examination of the sacrum and coccyx and sacroiliac joints. Electronically signed by: Kamran Zamudio MD 01/24/2025 12:38 PM [facility]
--- OUTSIDE RECORDS SUMMARY | 2025-01-24 15:00 | XMS_ITS | Clinical Summary ---
Author Organization [facility] Address [address] [place] [address] 7[address] [place] [address] Care Team Providers Care Hydrogen Operator Name Role Phone Unavailable Primary Care Provider [...] 2 Active calcium carbonate (Tums) 250 mg ([place] 100 mg) chewable split tablet Take by mouth. Activ e cholecalciferol (Vitamin D3) 1.25 MG (24419 UT) tablet TK 1 C PO WEEKLY [...] Relevant to Health Maintenance Insurance [address] [place] [address] [facility] MEDICAID STAND ADULT [address] [place] [address]
--- OUTSIDE RECORDS SUMMARY | 2025-01-24 15:00 | XMS_ITS | Encounter Summary ---
Author Organization [facility] Address [address] 7t [place] [address] Care Team Providers Care Branch General Manager Name Role Phone Unavailable Primary Care Provider Unavailabl e Encounter Details Date Type Department Care Team ([facility] st Contact Info) Description 03/14/2022 Abstract [facility] [address] [place] [address] Chau Min DDS [address] [place] [address] Social History Tobacco Use Types Packs/Day Years [...]
--- OUTSIDE RECORDS SUMMARY | 2025-01-24 15:00 | XMS_ITS | Patient Health Record ---
Author Organization [facility] Address [address] [place] [address] Support Name Relationship Address Phone DEANNA, SUSAN Emergency Contact [address] [place], [place] [id number] PEMA HUERTA Guarantor Unknown [phone] Care Team Providers Care Scleroscope Tester Name Role Phone Lisbeth TEMPLE, Darlin Primary [...] ee times a day Active Vitamin D3 94876 UNIT TK 1 C PO WEEKLY Orally [...] Notes Problem Gastroesophageal reflux disease without esophagitis (731316431) Gastroesophageal reflux disease without esophagitis (K21.9) Active confirmed Problem Nausea and vomiting (65538005) Nausea and vomiting, unspecified intactability, vomiting of unspecified type (R11.2) Active confirmed Problem Anemia (452917568) Anemia, unspecified type (D64.9) Active confirmed Problem Irritable bowel syndrome (15972238) Irritable bowel syndrome with both constipation and diarrhea (K58.2) Active confirmed Plan Of Treatment Pending Test Test Name Order Date IRON + IBC (FE) 04/02/2018 FERRITIN 04/02/2018 CBC w/o DIFF 04/02/2018 Insurance Providers Payer Name Payer Address Payer Phone Subscriber Number Group Number Insured Name Patient Relationship to Insured Coverage Start Date Coverage End Date [facility] [address] [address] [place], [place] [phone] [id number] PEMA HUERTA Self - patient is the insured Medical (General) History Medical History History ICD Code fibromyalgia headaches Denies VA,DM,CVA,Lung disease,renal dise ase allergies Surgical History Surgery Date(Month/Year) eardrum colapse repair 2003
--- OUTSIDE RECORDS SUMMARY | 2025-01-24 15:01 | XMS_ITS | Encounter Summary ---
Author Organization [facility] Address [address] [place] [address] Phone Care Team Providers Care Folder Inspector Name Role Phone Darlin Bob MD Primary Care Provider Reason for Visit * Reason Onset Date Comments Appointment 01/23/2025 Fall 01/13/2025 Encounter Details Date Type Department Care Team (Late st Contact Info) Description 01/23/2025 Telephone [facility] Rheumatology [address] [place] [address] Rika Charles MD [address], [address] [place] [address] [email or web address] Appointment (fall01/13/2025) Social History Tobacco Use Types Packs/Day Years Used Date Smoking Tobacco: Former Smokeless Tobacco: Never Alcohol Use Standard Drinks/Week Comments Not Currently [...] Orientation Pansexual 12/11/2023 4: 05 PM EDT documented as of this encounter Progress Notes * Katy Shin RN - 01/23/2025 11:53 AM EST Spoke to patient who reports had a fall week ago. She has not reached out to her PCP yet. I told her for a fall, needs to first be seen by PCP, she will call that office. * Leeanna Corrigan - 01/23/2025 11:45 AM EST Pt called reported having a fall on 01/13/2025 at work - pt has not been seen for this. Pt stated that she is experiencing lingering pain that she wants Dr to review- leave detailed message on Voice mail. Central Support Central Processing Tech (Please do not reply to this user; this inbox is not monitored.) Thank you. documented in this encounter Plan of Treatment Upcoming Encounters Date Type Department Care Team (Late st Contact Info) Description 04/17/2025 2:00 PM EST Office Visit [facility] Rheumatology [address] [place] [address] [place] [address] Rika Charles MD [address] [place] [address], [address] [place] [address] documented as of this encounter Visit Diagnoses Not on filedocumented in this encounter Care Teams Folder Inspector Relationship Specialty Start Date End Date Darlin Bob MD [address] [place] [address] PCP - General Internal Medicine 6/19/18 documented as of this encounter Additional Source Comments The information contained in this document represents components of the legal health record. It is not the complete legal health record.[facility]
--- OUTSIDE RECORDS SUMMARY | 2025-01-24 15:01 | XMS_ITS | Clinical Summary ---
Author Organization [facility] Address [address] [place] [address] Phone Care Team Providers Care Admission Nurse Name Role Phone Darlin Bob MD Primary [...] bit better intermittently. Listen regularly to [facility] guide to pain relief audiobook. Sleep hygiene. Proper hydration. Well-balanced nutritionally diet. Gentle, regular exercise as tolerated. Balance rest and activity. Keep regular engagement in hobbies/favorite activities. May benefit from warm pool therapy at [facility]. Continue listening to audiobook written by [...] bit better intermittently. Listen regularly to [facility] guide to pain relief audiobook. Sleep hygiene. [...] bit better intermittently. Listen regularly to [facility] guide to pain relief audiobook. Sleep hygiene. [...] a bit better. Listen regularly to [facility] guide to pain relief audiobook. Sleep hygiene. [...] problems or questions. Listen regularly to [facility] guide to pain relief audiobook. Sleep hygiene. [...] daily as prescribed. Listen regularly to [facility] guide to pain relief audiobook. Sleep hygiene. [...] daily as prescribed. Listen regularly to [facility] guide to pain relief audiobook. Sleep hygiene. [...] 7:05 PM EDT): Listen regularly to the [facility] guide to pain relief audiobook. Sleep hygiene. Proper hydration. Well-balanced nutritionally diet. Gentle, regular exercise as tolerated. Balance rest and activity. Keep regular engagement in hobbies/favorite activities. Continue listening to audiobook written by Dr Phil persaud addressing management strategies for patients with fibromyalgia utilizing mindfulness approach Assessment & Plan (02/24/2019 11:00 AM EST): Listening regularly to the [facility] guide to pain relief audiobook. Sleep hygiene. Proper hydration. Well-balanced nutritionally diet. Gentle, regular exercise as tolerated. Balance rest and activity. Keep regular engagement in hobbies/favorite activities. Continue listening to audiobook written by Dr Phil Nash [facility] addressing management strategies for patients with fibromyalgia utilizing mindfulness approach Assessment & Plan (05/25/2018 11:46 PM EST): Listening regularly to the [facility] guide to pain relief audiobook. Sleep hygiene. [...] Encounters Date Type Department Care Team Description 01/23/2025 Telephone [facility] Rheumatology [address] [place] [address] Rika Charles MD Appointment (fall01/13/2025) 11/12/2024 Refill [facility] Rheumatology [address] [place] [address] Rika Charles MD Medication Refill from Last 3 Months Family History Medical [...] Description 04/17/2025 2:00 PM EST Office Visit [facility] Rheumatology [address] [place] [address] Rika Charles MD [address] [place] [address], [address] [place] [address] Health Maintenance Due Date Last Done Comments DEPRESSION SCREENING 2003 SMOKING Hx and SMOKELESS TOBACCO SCREENING 2004 HEPATITIS C SCREENING 2009 HIV ONE-TIME SCREENING (18-6 5 YEARS) 2009 PAP SMEAR 2012 INFLUENZA VACCINE (#1) 2024 03/03/2019 COVID-19 VACCINE (3 - 2024-2 6 season) 2024 10/31/2020, 10/07/2020 Adult [...] this topic Medical Devices Not on file [facility] [employer] * Guarantor: Jessica Montoya Account Type Relation to Patient Date of Phone Billing Address Personal/Family Self 1990 [address] [facility] [address] [facility] [facility] [address] [place], [place] [facility] [employer] * Guarantor: Jessica Montoya Account Type Relation to Patient Date of Phone Billing Address Personal/Family Self 1990 [address] [facility] [address] [place], [place] [facility] [employer] * Guarantor: Jessica Montoya Account Type Relation to Patient Date of Phone Billing Address Personal/Family Self 1990 [address] [facility] [address] [place], [place] [facility] [employer] DIRECT [address] [facility] [address] [place] [employer] DIRECT * Guarantor: JanJessica Account Type Relation to Patient Date of Phone Billing Address Personal/Family Self 1990 [address] [facility] [address] [place] [address] * Guarantor: Jessica Montoya Account Type Relation to Patient Date of Phone Billing Address Personal/Family Self 1990 [address] [facility] [address] [place] [address] * Guarantor: Jan Jessica Account Type Relation to Patient Date of Phone Billing Address Personal/Family Self 1990 [address] [facility] [address] [place] [address] Care Teams Admission Nurse Relationship Specialty Start Date End Date Darlin Bob MD [address] [place] [address] PCP - General Internal Medicine 09/08/17 Additional Source Comments The information contained in this document represents components of the legal health record. It is not the complete legal health record.[facility]
== END 2025-01-24 11:03 | disposition home or self-care (01) ==
LOC: HO.HMGCX 11:02
PROVIDERS: PCP Internal Medicine; Visit Provider Physician Assistant
DX: M25.551 Pain in right hip (principal); M79.18 Myalgia, other site; M46.1 Sacroiliitis, not elsewhere classified; Z32.02 Encounter for pregnancy test, result negative; Z91.81 History of falling
CPT/HCPCS: 72202; 72220; 81025; 99212

== ENCOUNTER 2025-01-24 11:02 | Outpatient (AMB) | payer OTHER, SELFPAY ==
--- NOTE | 2025-01-24 11:13 | AM.OFFWIN_ITS ---
Intake Vital Signs 01/24/25 11:14 Height 5 ft 6 in Weight 289 lb BMI 46.6 BP 122/84 Blood Pressure Location Rt brachial Position Sitting Pulse 72 Pulse Source Pulse Oximeter Temp 97.9 F Temp Source Oral Pulse Oximetry (%) 98 Oxygen Delivery Method Room Air Intake Visit Reasons: EP Pain in upper back/hips Intake Note: pt ro right mid back, bilateral hips and tailbone. also notes itchy and rashy axillae- prescription topicals of no help fell off 6ft ladder at 4th ft height at work 01/13/25- impact to feet then fell on backside Patient Tobacco Use Status: Former Tobacco user Allergies cat dander (cats) Allergy (Mild, Verified 01/24/25 11:36) Itchy Eyes/sinusitis gluten Allergy (Mild, Verified 01/24/25 11:36) GI upset lactase (From Dairy Aid) Allergy (Mild, Verified 01/24/25 11:36) GI upset mold Allergy (Mild, Verified 01/24/25 11:36) sinusitis onions Allergy (Unknown, Uncoded 09/02/22 10:02) stomach upset ragweed,elm,birch,maple,pigwee Allergy (Unknown, Uncoded 09/02/22 10:02) Itchy Eyes Do you need a note to return to daycare/school/sports/work: No HPI HPI Comments History of Present Illness0 Details History - The patient is a 34-year-old female pr esenting with pain following a fall from a ladder. - The fall occurred on January 13 from the 4th rung of a 6-foot ladder, landing initially on her feet and then on her buttocks. - She did not lose consciousness but lig htly bumped her head. - Post-fall, she experienced increased p ain in her hips, particularly the right hip, and coccyx, exacerbated by prolonged sitting and relieved by standing. - Pain radiates down the right leg, prim arily down the front, with occasional sharp shooting pain. - She has a history of fibromyalgia and PMDD, which complicates her pain perception and management. - She has been using Tylenol, ibuprofen, and cyclobenzaprine for pain management, with limited relief. 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 - LMP prior to fall on 01/13, she thinks + Review of Systems - Musculoskeletal: Reports right hip geneva n, coccyx pain, and pain radiating down the right leg. Denies loss of bladder or bowel control. - Neurological: Denies loss of conscious ness, reports occasional sharp shooting pain in the right leg. - Respiratory: Reports pain with deep br eathing, no other respiratory symptoms noted. All systems reviewed and are unremarkable except as noted in HPI Physical Exam General: cooperative, healthy appearing and comfortable, patient oriented x3 Head: Yes normal to inspection and Yes normocephalic General nose exam: Normal external nose present Face and sinus: Yes normal facial exam Effort & Inspection: normal respiratory effort and able to speak in complete sentences Back/spine: CVA tenderness present, sensitive and painful between the shoulders cervical, thoracic and lumbar spine normal to inspection cervical ROM normal, thoracic ROM normal, lumbar ROM normal no Cervical or thoracic spine tenderness TTP on right thoracic back, lumbar spine ttp into right buttocks Extremities: moving extremities normally, straight leg test negative on the right leg Neuro: A&O x3, gait normal [facility] Medical History (Updated 01/24/25 @ 12:04 by Polly Peres PA-C) Unknown date of last menstrual period, antepartum Pain in buttock Fall from ladder Acute right hip pain Thrush, oral ADD (attention deficit disorder) Chronic low back pain with bilateral sciatica Nausea and vomiting Continuous epigastric pain Depression with anxiety History of traumatic brain injury PTSD (post-traumatic stress disorder) Iron deficiency Normal endoscopy PMDD (premenstrual dysphoric disorder) Hx of migraines Dairy product intolerance History of gluten sensitivity Fibromyalgia Extreme obesity Depression IBS (irritable bowel syndrome) Surgical History Hx of endoscopy Myringotomy tube status S/P wisdom tooth extraction Hx of colonoscopy History of tympanoplasty of left ear Family History Father Diverticulitis Polymyalgia Mother HTN (hypertension) Hypothyroidism Glaucoma IBS (irritable bowel syndrome) Arthritis FH: total knee replacement Cervical stenosis of spine Maternal Grandmother Diabetes mellitus Glaucoma Maternal Grandfather Unknown family medical history Paternal Grandmother CVD (cardiovascular disease) Myocardial infarction Paternal Grandfather CVD (cardiovascular disease) Brother Scoliosis Substance abuse Bipolar 1 disorder Social History Housing: Apartment Alcohol intake: never Patient Tobacco Use Status: Former Tobacco user e-Cigarette/Vaping Use: Currently Using Substance Use Type: Marijuana service: No Current occupational status: employed Cognitive needs: No Hearing needs: No Vision needs: Yes Female Reproductive History Menstrual Age of Menarche: 13 Physical Exam Vital Signs: Last Vital Signs Temp 97.9 F 01/24/25 11:14 Pulse 72 01/24/25 11:14 BP 122/84 01/24/25 11:14 Pulse Ox 98 01/24/25 11:14 Oxygen Delivery Method Room Air 01/24/25 11:14 BMI result Body Mass Index 46.6 Results AMB Test Urine AMB Test Urine Negative Last Edit by Nelli Wharton MA on 01/24 12:12 Results Reviewed Results Reviewed: Laboratory Last Values Tst Clinic Negative 01/24/25 11:57 Assessment & Plan Assessment & Plan (1) Acute right hip pain: Code(s): M25.551 - Pain in right hip Plan: as below (2) Fall from ladder: Code(s): W11.XXXA - Fall on and from ladder, initial encounter Qualifiers: Encounter type: initial encounter Qualified Code(s): W11.XXXA - Fall on and from ladder, initial encounter Plan: as above (3) Acute right hip pain: Code(s): M25.551 - Pain in right hip Plan: as above (4) Pain in buttock: Code(s): M79.18 - Myalgia, other site Plan: as above (5) Acute right hip pain: Code(s): M25.551 - Pain in right hip Plan: as above (6) Sacroiliitis: Code(s): M46.1 - Sacroiliitis, not elsewhere classified Plan: Plan - Urine preg negative - Order x-rays of the sacrum, coccyx, and sacroiliac joint to assess for structural abnormalities. - Initiate physical therapy referral to address sacroiliac joint dysfunction and improve mobility. - Advise alternating between ice and heat application to manage pain and muscle spasms. - Continue current medication regimen with Tylenol, ibuprofen, and cyclobenzaprine as needed for pain management. Patient was informed and verbally consented to the use of an ambient scribe for clinic note documentation during this visit. Orders: Orders PT Evaluation and Treatment Today M25.551 - Pain in right hip, M46.1 - Sacroiliitis, not elsewhere classified, M79.18 - Myalgia, other site, W11.XXXA - Fall on and from ladder, initial encounter AMB HCG Urine Test Today Z34.90 - Encounter for supervision of normal , unspecified, unspecified trimester XR sacroiliac joint min 3V Today M25.551 - Pain in right hip, M79.18 - Myalgia, other site XR sacrum coccyx min 2V Today M25.551 - Pain in right hip, M79.18 - Myalgia, other site, W11.XXXA - Fall on and from ladder, initial encounter Coding Level of Care Code Est Pt Level 4 (70517) Diagnoses Acute right hip pain M25.551 Fall from ladder, initial encounter W11.XXXA Encounter type: initial encounter Pain in buttock M79.18 Sacroiliitis M46.1
[2025-01-24 11:14] VITALS: BP 122/84; PULSE 72; TEMP 36.6; O2SAT 98; BMI 46.6
== END 2025-01-24 12:17 | disposition home or self-care (01) ==
PROVIDERS: PCP Internal Medicine; Visit Provider Physician Assistant
DX: M25.551 Pain in right hip (principal); W11.XXXA Fall on and from ladder, initial encounter; M79.18 Myalgia, other site; M46.1 Sacroiliitis, not elsewhere classified; Z34.90 Encounter for supervision of normal pregnancy, unspecified, unspecified trimester

== ENCOUNTER → 2025-01-24 12:16 | Outpatient (BNV) | payer OTHER, SELFPAY | PROVIDERS: PCP Internal Medicine; Visit Provider Radiology Diagnostic Radiology | DX: M25.551 Pain in right hip (principal); M79.18 Myalgia, other site; W11.XXXA Fall on and from ladder, initial encounter | CPT/HCPCS: 72202; 72220 ==